=== PATIENT | male | born 1965 | race African-American/Black ===

== ENCOUNTER 2019-08-03 16:21 | Inpatient (IN) | payer OTHER ==
--- NOTE | 2019-08-03 16:47 | PDOC ---
Rapid Medical Evaluation Time Seen by Provider: 08/03/19 16:43 Medical Evaluation: 08/03/19 16:44 Pt c/o: foot wound, sent by wound care for admission to [facility] and dr kelley Pt on brief exam: rt foot wrapped in dressing Pt ordered for: admission orders Pt to proceed to the ED Discharge Disposition - Diagnosis Osteomyelitis of foot - Discharge Dispostion Condition at time of disposition: Fair - Referrals - Patient Instructions - Post Discharge Activity
[2019-08-03 17:44] LABS: BASO % 0.7 % (0-2.0); EOS % 1.1 % (0-4.5); HEMATOCRIT 43.7 % (35.4-49); HEMOGLOBIN 14.3 GM/dL (11.7-16.9); LYMPH % 13.8 % (8-40); MCH 25.7 pg (25.7-33.7); MCHC 32.7 g/dl (32.0-35.9); MEAN CELL VOLUME 78.7 fl (80-96); MEAN PLT VOLUME 9.3 fl (7.5-11.1); NEUT % 76.4 % (42.8-82.8); PLATELET COUNT 285 K/MM3 (134-434); RBC 5.55 M/mm3 (4.00-5.60); RDW 12.9 % (11.9-15.9); WHITE BLOOD COUNT 12.5 K/mm3 (4.0-10.0)
[2019-08-03 17:56] LABS: INR 1.28 (0.83-1.09); PROTHROMBIN TIME (PATIENT) 15.1 SEC (9.7-13.0)
--- NOTE | 2019-08-03 18:16 | HP ---
Admitting History and Physical - Primary Care Physician PCP: Lester Hyde - Admission Chief Complaint: foot wound History of Present Illness: HISTORY OF PRESENT ILLNESS: 54-year-old male past medical history of type 2 diabetes who presents emergency department from wound care for admission for treatment of osteomyelitis of his right foot. Patient states she was on outpatient Augmentin during wound care but now noticed increased swelling and redness to his right foot with a foul odor from the wound. He denies fevers or chills. - Past Medical History Endocrine: Yes: Diabetes Mellitus - Smoking History Smoking history: Never smoked - Alcohol/Substance Use Hx Alcohol Use: No Home Medications - Allergies Allergies/Adverse Reactions: Allergies Allergy/AdvReac Type Severity Reaction Status Date / Time No Known Allergies Allergy Verified 08/03/19 16:45 - Home Medications Home Medications: Ambulatory Orders Sitagliptin Phos/Metformin HCl [Janumet 50-1,000 mg Tablet] 1 tab PO BID Physical Examination Vital Signs: Vital Signs Temperature 98.3 F 08/03/19 16:46 Pulse Rate 87 08/03/19 16:46 Respiratory Rate 16 08/03/19 16:46 Blood Pressure 158/83 08/03/19 16:46 O2 Sat by Pulse Oximetry (%) 100 08/03/19 16:46 Constitutional: Yes: No Distress HENT: Yes: Atraumatic Neck: Yes: Supple Cardiovascular: Yes: Regular Rate and Rhythm Respiratory: Yes: CTA Bilaterally Gastrointestinal: Yes: Normal Bowel Sounds Extremities: Yes: Other (R foot infection) Edema: Yes Edema: RLE: 1+ Neurological: Yes: Alert, Oriented Labs: CBC, BMP 08/03/19 17:03 Problem List - Problems (1) Wound of foot Assessment/Plan: iv abx wound care id consult Code(s): S91.309A - UNSPECIFIED OPEN WOUND, UNSPECIFIED FOOT, INITIAL ENCOUNTER (2) Diabetes Code(s): E11.9 - TYPE 2 DIABETES MELLITUS WITHOUT COMPLICATIONS (3) Osteomyelitis of foot Code(s): M86.9 - OSTEOMYELITIS, UNSPECIFIED Assessment/Plan Laboratory Tests 08/03/19 08/03/19 17:03 17:03 WBC 12.5 H RBC 5.55 Hgb 14.3 Hct 43.7 MCV 78.7 L MCH 25.7 MCHC 32.7 RDW 12.9 Plt Count 285 D MPV 9.3 Absolute Neuts (auto) 9.6 H Neutrophils % 76.4 Lymphocytes % 13.8 D Monocytes % 8.0 Eosinophils % 1.1 Basophils % 0.7 Nucleated RBC % 0 PT with INR 15.10 H INR 1.28 H Active Medications Generic Name Dose Route Start Last Admin Trade Name Freq PRN Reason Stop Dose Admin Acetaminophen 650 mg 08/03/19 18:18 Tylenol - PO Q6H PRN FEVER Heparin Sodium (Porcine) 5,000 unit 08/03/19 22:00 08/04/19 09:48 Heparin - SQ 5,000 unit BID JAREN Administration Vancomycin HCl 1,250 mg/ 250 mls @ 166.667 mls/hr 08/04/19 13:00 08/04/19 16: 29 Dextrose IVPB 166.667 mls/hr Q12H JAREN Administration Protocol Levofloxacin 750 mg in 150 mls @ 100 mls/hr 08/04/19 13:00 08/04/19 14:11 Levaquin 750 Mg Premixed Ivpb - IVPB 100 mls/hr DAILY JAREN Administration Protocol Metformin HCl 1,000 mg 08/04/19 07:00 08/04/19 17:02 Glucophage - PO 1,000 mg BIDAC JAREN Administration Sitagliptin Phosphate 50 mg 08/04/19 07:00 08/04/19 17:02 Januvia - PO 50 mg BIDAC JAREN Administration
[2019-08-03] MEDS ORDERED: CEFTRIAXONE 2,000 MG in DEXTROSE 5%-WATER - 50 ML IVPB ONE (19:46)
--- NOTE | 2019-08-03 19:50 | PDOC ---
*Physical Exam - Vital Signs Last Vital Signs Temp Pulse Resp BP Pulse Ox 98.3 F 87 16 158/83 100 08/03/19 16:46 08/03/19 16:46 08/03/19 16:46 08/03/19 16:46 08/03/19 16:46 ED Treatment Course - LABORATORY CBC & Chemistry Diagram: 08/03/19 17:03 08/03/19 20:40 - ADDITIONAL ORDERS Additional order review: Laboratory Results 08/03/19 08/03/19 08/03/19 17:03 17:03 17:03 PT with INR 15.10 H INR 1.28 H Creatine Kinase 87 Troponin I < 0.02 Blood Type A POSITIVE Antibody Screen Negative 08/03/19 17:03 RBC 5.55 MCV 78.7 L MCHC 32.7 RDW 12.9 MPV 9.3 Neutrophils % 76.4 Lymphocytes % 13.8 D Monocytes % 8.0 Eosinophils % 1.1 Basophils % 0.7 Medical Decision Making - Medical Decision Making 08/03/19 19:50 Right patient seen by the advanced practice provider under my direct supervision. Ancillary testing reviewed as necessary. I agree with plan as outlined by the advanced practice provider. Discharge - Discharge Information Problems reviewed: Yes Clinical Impression/Diagnosis: Osteomyelitis of foot Condition: Fair - Follow up/Referral - Patient Discharge Instructions - Post Discharge Activity
--- NOTE | 2019-08-03 20:05 | PDOC ---
History of Present Illness - General Chief Complaint: Wound Stated Complaint: SENT BY PCP/WOUND Time Seen by Provider: 08/03/19 16:43 History Source: Patient Exam Limitations: No Limitations - History of Present Illness Initial Comments: 08/03/19 19:50 HISTORY OF PRESENT ILLNESS: 54-year-old male past medical history of type 2 diabetes who presents emergency department from wound care for admission for treatment of osteomyelitis of his right foot. Patient states she was on outpatient Augmentin during wound care but now noticed increased swelling and redness to his right foot with a foul odor from the wound. He denies fevers or chills. No recent travel or sick contacts. PAST MEDICAL HISTORY: DM2 SURGICAL HISTORY: Denies ALLERGIES: No known drug allergies REVIEW OF SYSTEMS General/Constitutional: Denies fever or chills. Denies weakness, weight change. HEENT: Denies change in vision. Denies ear pain or discharge. Denies sore throat. Cardiovascular: Denies chest pain or shortness of breath. Respiratory: Denies cough, wheezing, or hemoptysis. Gastrointestinal: Denies nausea, vomiting, diarrhea or constipation. Denies rectal bleeding. Genitourinary: Denies dysuria, frequency, or change in urination. Musculoskeletal: see HPI Skin and breasts: Denies rash or easy bruising. Neurologic: Denies headache, vertigo, loss of consciousness, or loss of sensation. Psychiatric: Denies depression or anxiety. Endocrine: Denies increased thirst. Denies abnormal weight change. Hematologic/Lymphatic: Denies anemia, easy bleeding, or history of blood clots. Allergic/Immunologic: Denies hives or skin allergy. Denies latex allergy. PHYSICAL EXAM General Appearance: Well-appearing, appropriately dressed. No apparent distress , no intoxication. Respiratory/Chest: Lungs CTAB. No shortness of breath, chest tenderness, respiratory distress, accessory muscle use. No crackles, rales, rhonchi, stridor , wheezing, dullness Cardiovascular: RRR. S1, S2. No JVD, murmur, bradycardia, tachycardia. Vascular Pulses: Dorsalis-Pedis (R): 2+, Dorsalis-Pedis (L): 2+ Lymphatic: No adenopathy, tenderness. Musculoskeletal/Extremities: Normal inspection. FROM of all extremities, normal capillary refill. Pelvis Stable. No CVA tenderness. No tenderness to extremities, pedal edema, swelling, erythema or deformity. Integumentary: Appropriate color, dry, warm. No cyanosis, erythema, jaundice or rash. Open wound present over the plantar surface over the right fifth metatarsal. Surrounding erythema noted extending to the dorsum of the right foot to the base of the ankle. Able to contact bone with probing of the wound. Culture collected. 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 Fully oriented, alert. Appropriate mood/affect. Motor strength 5/5. No appreciable EOM palsy, facial droop or sensory deficit. 08/03/19 20:05 Past History - Past Medical History Allergies/Adverse Reactions: Allergies Allergy/AdvReac Type Severity Reaction Status Date / Time No Known Allergies Allergy Verified 08/03/19 16:45 Home Medications: Ambulatory Orders Sitagliptin Phos/Metformin HCl [Janumet 50-1,000 mg Tablet] 1 PO BID 08/03/19 COPD: No Diabetes: Yes - Immunization History Immunization Up to Date: Yes - Psycho Social/Smoking Cessation Hx Smoking History: Never smoked Hx Alcohol Use: No Drug/Substance Use Hx: No *Physical Exam - Vital Signs Last Vital Signs Temp Pulse Resp BP Pulse Ox 98.3 F 87 16 158/83 100 08/03/19 16:46 08/03/19 16:46 08/03/19 16:46 08/03/19 16:46 08/03/19 16:46 ED Treatment Course - LABORATORY CBC & Chemistry Diagram: 08/03/19 17:03 - ADDITIONAL ORDERS Additional order review: Laboratory Results 08/03/19 08/03/19 08/03/19 17:03 17:03 17:03 WBC 12.5 H RBC 5.55 Hgb 14.3 Hct 43.7 MCV 78.7 L MCH 25.7 MCHC 32.7 RDW 12.9 Plt Count 285 D MPV 9.3 Absolute Neuts (auto) 9.6 H Neutrophils % 76.4 Lymphocytes % 13.8 D Monocytes % 8.0 Eosinophils % 1.1 Basophils % 0.7 Nucleated RBC % 0 PT with INR 15.10 H INR 1.28 H Creatine Kinase Troponin I Blood Type A POSITIVE Antibody Screen Negative 08/03/19 17:03 WBC RBC Hgb Hct MCV MCH MCHC RDW Plt Count MPV Absolute Neuts (auto) Neutrophils % Lymphocytes % Monocytes % Eosinophils % Basophils % Nucleated RBC % PT with INR INR Creatine Kinase 87 Troponin I < 0.02 Blood Type Antibody Screen 08/03/19 17:03 RBC 5.55 MCV 78.7 L MCHC 32.7 RDW 12.9 MPV 9.3 Neutrophils % 76.4 Lymphocytes % 13.8 D Monocytes % 8.0 Eosinophils % 1.1 Basophils % 0.7 Medical Decision Making - Medical Decision Making 08/03/19 20:07 A/P: 54-year-old male with osteomyelitis of his right foot over the plantar surface of the fifth metatarsal Probing of the wound reveals contact with bone. Surrounding erythema present encompassing the foot extending to the base of the tibia. Case has been discussed with Dr. Nuno who recommends ceftriaxone 2 g IV to be given now. Blood cultures Wound culture CMP Admit Consult placed for podiatry 08/03/19 20:08 08/03/19 20:24 Case has been discussed with Dr. Hyde who is aware of patient and accepts for inpatient admission. Discharge - Discharge Information Problems reviewed: Yes Clinical Impression/Diagnosis: Osteomyelitis of foot Condition: Fair - Admission Yes - Follow up/Referral Referrals: Kristen Chambers MD [Primary Care Provider] - - Patient Discharge Instructions - Post Discharge Activity
[2019-08-03] MEDS ORDERED: CEFTRIAXONE 2 GM/100 ML BAG IVPB ONE (20:50)
[2019-08-03 21:48] LABS: ALBUMIN 3.4 g/dl (3.4-5.0); BILIRUBIN,TOTAL 0.2 mg/dL (0.2-1); BLOOD UREA NITROGEN 16.2 mg/dL (7-18); CALCIUM 8.7 mg/dL (8.5-10.1); CREATININE 0.9 mg/dL (0.55-1.3); POTASSIUM 4.3 mmol/L (3.5-5.1); TOT PROT 7.1 g/dl (6.4-8.2)
[2019-08-03] MEDS ORDERED: PATIENT'S OWN MEDICATION (NON-FORMULARY) (Sitagliptin Phos/Metformin Hcl [Janumet 50-1,000 PO SCH (22:00)
[2019-08-04] MEDS ORDERED: HEPARIN NA (PORCINE) 5,000 UNITS/ML 1ML VIAL ONE (00:12)
[2019-08-04] MEDS: HEPARIN NA (PORCINE) 5,000 UNITS/ML 1ML VIAL SQ SCH ×3 (00:19→22:46)
[2019-08-04] MEDS ORDERED: metFORMIN HCL 500 MG TABLET (FP) ONE (05:48)
[2019-08-04] MEDS ORDERED: sitaGLIPtin PHOSPHATE 50 MG TABLET ONE (06:12)
[2019-08-04] MEDS: metFORMIN HCL 500 MG TABLET (FP) PO SCH ×2 (06:45→17:02)
[2019-08-04] MEDS: sitaGLIPtin PHOSPHATE 50 MG TABLET PO SCH ×2 (06:46→17:02)
--- NOTE | 2019-08-04 10:05 | EKG ---
Test Reason : Blood Pressure : / mmHG Vent. Rate : 077 BPM Atrial Rate : 077 BPM P-R Int : 154 ms QRS Dur : 094 ms QT Int : 362 ms P-R-T Axes : 061 073 025 degrees QTc Int : 409 ms NORMAL SINUS RHYTHM POSSIBLE LEFT ATRIAL ENLARGEMENT LEFT VENTRICULAR HYPERTROPHY ABNORMAL ECG NO PREVIOUS ECGS AVAILABLE Confirmed by AMNA MARTINEZ MD ([id number]) on 08/04/2019 10:04:50 AM Referred By: Confirmed By:AMNA MARTINEZ MD
--- NOTE | 2019-08-04 12:10 | CON.ID ---
Consult Consult Specialty:: infectious diseases Referred by:: dr ham Reason for Consultation:: osteo and cellulitis of the foot,wound infection - Alcohol/Substance Use Hx Alcohol Use: No - Smoking History Smoking history: Never smoked Home Medications - Allergies Allergies/Adverse Reactions: Allergies Allergy/AdvReac Type Severity Reaction Status Date / Time No Known Allergies Allergy Verified 08/03/19 16:45 - Home Medications Home Medications: Ambulatory Orders Sitagliptin Phos/Metformin HCl [Janumet 50-1,000 mg Tablet] 1 tab PO BID Physical Exam Vital Signs: Vital Signs Temperature 98.2 F 08/04/19 07:37 Pulse Rate 65 08/04/19 07:37 Respiratory Rate 18 08/04/19 07:37 Blood Pressure 140/77 08/04/19 07:37 O2 Sat by Pulse Oximetry (%) 97 08/04/19 07:37 Labs: CBC, BMP 08/03/19 17:03 08/03/19 20:40
[2019-08-04] MEDS: VANCOMYCIN 1,250 MG in DEXTROSE 5%-WATER - 250 ML IVPB SCH (16:29)
--- NOTE | 2019-08-04 18:48 | PN ---
Progress Note, Physician - Current Medication List Current Medications: Active Medications Acetaminophen (Tylenol -) 650 mg PO Q6H PRN PRN Reason: FEVER Heparin Sodium (Porcine) (Heparin -) 5,000 unit SQ BID JAREN Last Admin: 08/04/19 09:48 Dose: 5,000 unit Vancomycin HCl 1,250 mg/ (Dextrose) 250 mls @ 166.667 mls/hr IVPB Q12H JAREN; Protocol Last Admin: 08/04/19 16:29 Dose: 166.667 mls/hr Levofloxacin (Levaquin 750 Mg Premixed Ivpb -) 750 mg in 150 mls @ 100 mls/hr IVPB DAILY JAREN; Protocol Last Admin: 08/04/19 14:11 Dose: 100 mls/hr Metformin HCl (Glucophage -) 1,000 mg PO BIDAC JAREN Last Admin: 08/04/19 17:02 Dose: 1,000 mg Sitagliptin Phosphate (Januvia -) 50 mg PO BIDAC JAREN Last Admin: 08/04/19 17:02 Dose: 50 mg - Objective Vital Signs: Vital Signs Temperature 98.2 F 08/04/19 07:37 Pulse Rate 65 08/04/19 07:37 Respiratory Rate 18 08/04/19 07:37 Blood Pressure 140/77 08/04/19 07:37 O2 Sat by Pulse Oximetry (%) 97 08/04/19 07:37 Constitutional: Yes: No Distress HENT: Yes: Atraumatic Neck: Yes: Supple Cardiovascular: Yes: Regular Rate and Rhythm Respiratory: Yes: CTA Bilaterally Gastrointestinal: Yes: Normal Bowel Sounds Extremities: Yes: Other (R foot infection) Neurological: Yes: Alert, Oriented Labs: CBC, BMP 08/03/19 17:03 08/03/19 20:40 INR, PTT INR 1.28 (0.83-1.09) H 08/03/19 17:03 Problem List - Problems (1) Wound of foot Assessment/Plan: iv abx wound care id consult Code(s): S91.309A - UNSPECIFIED OPEN WOUND, UNSPECIFIED FOOT, INITIAL ENCOUNTER (2) Diabetes Assessment/Plan: on po meds bgms Code(s): E11.9 - TYPE 2 DIABETES MELLITUS WITHOUT COMPLICATIONS (3) Osteomyelitis of foot Code(s): M86.9 - OSTEOMYELITIS, UNSPECIFIED
[2019-08-05] MEDS: VANCOMYCIN 1,250 MG in DEXTROSE 5%-WATER - 250 ML IVPB SCH ×2 (02:09→14:14)
[2019-08-05] MEDS: sitaGLIPtin PHOSPHATE 50 MG TABLET PO SCH ×2 (06:32→16:30)
[2019-08-05] MEDS: metFORMIN HCL 500 MG TABLET (FP) PO SCH ×2 (06:32→16:30)
[2019-08-05] MEDS ORDERED: FLU VACCINE QUAD 60 MCG/0.5 ML (MDV 19-20) IM ONE (10:00)
[2019-08-05] MEDS ORDERED: PT OWN MED DRAWER 7, Y5N ONE (10:44)
[2019-08-05] MEDS: HEPARIN NA (PORCINE) 5,000 UNITS/ML 1ML VIAL SQ SCH ×2 (11:21→22:29)
--- NOTE | 2019-08-05 13:07 | CONSULT ---
Consult Consult Specialty:: Podiatry Reason for Consultation:: Asked to evaluate patient for wound plantar right foot that is drainaing. - History of Present Illness Chief Complaint: Diabetic wound sub 5 left History of Present Illness: Patient was being tx outpatient for this wound. Had a TCC EZ applied and destroyed cast and got it wet. Came in with infected foot. Pt has been seen in past by Dr. Strickland, Dr. Rivera. - History Source History Provided By: Patient, Medical Record - Past Medical History Endocrine: Yes: Diabetes Mellitus - Alcohol/Substance Use Hx Alcohol Use: No - Smoking History Smoking history: Never smoked Home Medications - Allergies Allergies/Adverse Reactions: Allergies Allergy/AdvReac Type Severity Reaction Status Date / Time No Known Allergies Allergy Verified 08/03/19 16:45 - Home Medications Home Medications: Ambulatory Orders Sitagliptin Phos/Metformin HCl [Janumet 50-1,000 mg Tablet] 1 tab PO BID Physical Exam Vital Signs: Vital Signs Temperature 98.4 F 08/05/19 10:00 Pulse Rate 72 08/05/19 10:00 Respiratory Rate 18 08/05/19 10:00 Blood Pressure 139/69 08/05/19 10:00 O2 Sat by Pulse Oximetry (%) 98 08/05/19 09:00 Extremities: Yes: Other (+grade 3 wound sub 5 with drainage, +cellulitis, + drainage, -mal odor, vsgi,) Labs: CBC, BMP 08/03/19 17:03 08/03/19 20:40 Imaging - Results X-ray: Report Reviewed, Image Reviewed Assessment/Plan om? cellulitis plantarflexed 5th metatarsal Discussed tx options with patient and Dr. Rivera. Recommend stabilization of infection. Once stable needs bone resection partial or total head resection. HBO would be beneficial and patient has had it already. Will follow. Discussed with Dr. Rivera. MRI recommended. Betadine dressing right foot. Post op shoe.
--- NOTE | 2019-08-05 13:58 | PN ---
Progress Note, Physician History of Present Illness: patient improving no complaints - Current Medication List Current Medications: Active Medications Acetaminophen (Tylenol -) 650 mg PO Q6H PRN PRN Reason: FEVER Heparin Sodium (Porcine) (Heparin -) 5,000 unit SQ BID JAREN Last Admin: 08/05/19 11:21 Dose: 5,000 unit Vancomycin HCl 1,250 mg/ (Dextrose) 250 mls @ 166.667 mls/hr IVPB Q12H JAREN; Protocol Last Admin: 08/05/19 02:09 Dose: 166.667 mls/hr Levofloxacin (Levaquin 750 Mg Premixed Ivpb -) 750 mg in 150 mls @ 100 mls/hr IVPB DAILY JAREN; Protocol Last Admin: 08/05/19 11:21 Dose: 100 mls/hr Metformin HCl (Glucophage -) 1,000 mg PO BIDAC JAREN Last Admin: 08/05/19 06:32 Dose: 1,000 mg Sitagliptin Phosphate (Januvia -) 50 mg PO BIDAC JAREN Last Admin: 08/05/19 06:32 Dose: 50 mg - Objective Vital Signs: Vital Signs Temperature 98.4 F 08/05/19 10:00 Pulse Rate 72 08/05/19 10:00 Respiratory Rate 18 08/05/19 10:00 Blood Pressure 139/69 08/05/19 10:00 O2 Sat by Pulse Oximetry (%) 98 08/05/19 09:00 Constitutional: Yes: No Distress, Calm, Obese Cardiovascular: Yes: S1, S2 Respiratory: Yes: Regular, CTA Bilaterally Gastrointestinal: Yes: Normal Bowel Sounds, Soft Musculoskeletal: Yes: WNL Extremities: Yes: Erythema (of the rt leg), Other Edema: RLE: 2+ Integumentary: Yes: Erythema Wound/Incision: Yes: Well Approximated Neurological: Yes: Alert, Oriented Psychiatric: Yes: Alert, Oriented Labs: CBC, BMP 08/03/19 17:03 08/03/19 20:40 INR, PTT INR 1.28 (0.83-1.09) H 08/03/19 17:03 Assessment/Plan Problem List - Problems (1) Wound of foot Code(s): S91.309A - UNSPECIFIED OPEN WOUND, UNSPECIFIED FOOT, INITIAL ENCOUNTER (2) Diabetes Code(s): E11.9 - TYPE 2 DIABETES MELLITUS WITHOUT COMPLICATIONS (3) Osteomyelitis of foot Code(s): M86.9 - OSTEOMYELITIS, UNSPECIFIED plan as per podiatry will need surgery abx wound care rest as per the team
--- NOTE | 2019-08-05 18:33 | PN ---
Progress Note, Physician - Current Medication List Current Medications: Active Medications Acetaminophen (Tylenol -) 650 mg PO Q6H PRN PRN Reason: FEVER Heparin Sodium (Porcine) (Heparin -) 5,000 unit SQ BID JAREN Last Admin: 08/05/19 11:21 Dose: 5,000 unit Vancomycin HCl 1,250 mg/ (Dextrose) 250 mls @ 166.667 mls/hr IVPB Q12H JAREN; Protocol Last Admin: 08/05/19 14:14 Dose: 166.667 mls/hr Levofloxacin (Levaquin 750 Mg Premixed Ivpb -) 750 mg in 150 mls @ 100 mls/hr IVPB DAILY JAREN; Protocol Last Admin: 08/05/19 11:21 Dose: 100 mls/hr Metformin HCl (Glucophage -) 1,000 mg PO BIDAC JAREN Last Admin: 08/05/19 16:30 Dose: 1,000 mg Sitagliptin Phosphate (Januvia -) 50 mg PO BIDAC JAREN Last Admin: 08/05/19 16:30 Dose: 50 mg - Objective Vital Signs: Vital Signs Temperature 98.1 F 08/05/19 14:38 Pulse Rate 77 08/05/19 14:38 Respiratory Rate 16 08/05/19 14:38 Blood Pressure 134/74 08/05/19 14:38 O2 Sat by Pulse Oximetry (%) 98 08/05/19 09:00 Constitutional: Yes: No Distress HENT: Yes: Atraumatic Neck: Yes: Supple Cardiovascular: Yes: Regular Rate and Rhythm Respiratory: Yes: CTA Bilaterally Gastrointestinal: Yes: Normal Bowel Sounds Extremities: Yes: WNL Edema: No Peripheral Pulses WNL: Yes Neurological: Yes: Alert, Oriented Labs: CBC, BMP 08/03/19 17:03 08/03/19 20:40 INR, PTT INR 1.28 (0.83-1.09) H 08/03/19 17:03 Problem List - Problems (1) Wound of foot Assessment/Plan: iv abx wound care id consult Code(s): S91.309A - UNSPECIFIED OPEN WOUND, UNSPECIFIED FOOT, INITIAL ENCOUNTER (2) Diabetes Assessment/Plan: on po meds bgms Code(s): E11.9 - TYPE 2 DIABETES MELLITUS WITHOUT COMPLICATIONS (3) Osteomyelitis of foot Code(s): M86.9 - OSTEOMYELITIS, UNSPECIFIED
[2019-08-06] MEDS ORDERED: PT OWN MED DRAWER 7, Y5N ONE ×2 (00:47→14:32)
[2019-08-06] MEDS: VANCOMYCIN 1,250 MG in DEXTROSE 5%-WATER - 250 ML IVPB SCH ×2 (01:02→15:00)
[2019-08-06] MEDS: sitaGLIPtin PHOSPHATE 50 MG TABLET PO SCH ×2 (06:19→17:41)
[2019-08-06] MEDS: metFORMIN HCL 500 MG TABLET (FP) PO SCH ×2 (06:19→17:40)
--- NOTE | 2019-08-06 10:00 | CONSULT ---
- Consultation REQUESTING PROVIDER: CONSULT REQUEST: We have been asked to surgically evaluate this patient for Right foot ulcer/osteomeylitis PCP:Lester Hyde HISTORY OF PRESENT ILLNESS: HISTORY OF PRESENT ILLNESS: 54-year-old male past medical history of type 2 diabetes who presents emergency department from wound care for admission for treatment of osteomyelitis of his right foot. Patient states he was on outpatient Augmentin during wound care but now noticed increased swelling and redness to his right foot with a foul odor from the wound. He denies fevers, chills, N/V, CP or SOB. No recent travel or sick contacts. PAST MEDICAL HISTORY: DM2 SURGICAL HISTORY: Denies ALLERGIES: No known drug allergies Allergies Allergy/AdvReac Type Severity Reaction Status Date / Time No Known Allergies Allergy Verified 08/03/19 16:45 Home Medications Medication Instructions Recorded Sitagliptin Phos/Metformin HCl 1 tab PO BID 08/03/19 [Janumet 50-1,000 mg Tablet] REVIEW OF SYSTEMS General/Constitutional: Denies fever or chills. Denies weakness, weight change. HEENT: Denies change in vision. Denies ear pain or discharge. Denies sore throat. Cardiovascular: Denies chest pain or shortness of breath. Respiratory: Denies cough, wheezing, or hemoptysis. Gastrointestinal: Denies nausea, vomiting, diarrhea or constipation. Denies rectal bleeding. Genitourinary: Denies dysuria, frequency, or change in urination. Musculoskeletal: see HPI Skin and breasts: Denies rash or easy bruising. Neurologic: Denies headache, vertigo, loss of consciousness, or loss of sensation. Psychiatric: Denies depression or anxiety. Endocrine: Denies increased thirst. Denies abnormal weight change. Hematologic/Lymphatic: Denies anemia, easy bleeding, or history of blood clots. Allergic/Immunologic: Denies hives or skin allergy. Denies latex allergy. PHYSICAL EXAM General Appearance: Well-appearing, appropriately dressed. No apparent distress , Respiratory/Chest: Unlabored resp on RA, no auditory wheezes Vascular Pulses: Dorsalis-Pedis (R): 2+, +1 PT, Dorsalis-Pedis (L): 2+, +1TP Musculoskeletal/Extremities: moving all extremities without limitation. Integumentary: Appropriate color, dry, warm. No cyanosis, erythema, jaundice or rashes, cellulitis resolving, small punctate wound @ 0.5x0.5cm over plantar surface at base of the 5th metatarsal, mild odor noted with question of exposed bone. minimal diffuse edema throughout foot, minimal erythema noted extending to the dorsum of the right foot to the base of the ankle. 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 Fully oriented, alert. Appropriate mood/affect. Motor strength 5/5. No appreciable EOM palsy, facial droop or sensory deficit. 08/03/19 20:05 Problem List - Problems (1) Diabetic foot ulcer Assessment/Plan: 54yo with chronic DM foot ulcer r/o osteomeylitis and palpable pulses with no evidence for vascular intervention. -Continue Osteomeylitis work up-MRI today -Continue IV ABX per ID -Refer to podiatry for all care going forward -offload pressure sensitive area Evaluation and plan discussed with Dr Nickerson Code(s): E11.621 - TYPE 2 DIABETES MELLITUS WITH FOOT ULCER; L97.509 - NON- PRESSURE CHRONIC ULCER OTH PRT UNSP FOOT W UNSP SEVERITY
[2019-08-06] MEDS: HEPARIN NA (PORCINE) 5,000 UNITS/ML 1ML VIAL SQ SCH ×2 (11:06→21:00)
--- NOTE | 2019-08-06 12:15 | PN ---
Progress Note, Physician - Current Medication List Current Medications: Active Medications Acetaminophen (Tylenol -) 650 mg PO Q6H PRN PRN Reason: FEVER Heparin Sodium (Porcine) (Heparin -) 5,000 unit SQ BID JAREN Last Admin: 08/06/19 11:06 Dose: Not Given Vancomycin HCl 1,250 mg/ (Dextrose) 250 mls @ 166.667 mls/hr IVPB Q12H JAREN; Protocol Last Admin: 08/06/19 01:02 Dose: 166.667 mls/hr Levofloxacin (Levaquin 750 Mg Premixed Ivpb -) 750 mg in 150 mls @ 100 mls/hr IVPB DAILY JAREN; Protocol Last Admin: 08/06/19 11:25 Dose: 100 mls/hr Metformin HCl (Glucophage -) 1,000 mg PO BIDAC JAREN Last Admin: 08/06/19 06:19 Dose: Not Given Sitagliptin Phosphate (Januvia -) 50 mg PO BIDAC JAREN Last Admin: 08/06/19 06:19 Dose: Not Given - Objective Vital Signs: Vital Signs Temperature 98 F 08/06/19 09:40 Pulse Rate 65 08/06/19 09:40 Respiratory Rate 18 08/06/19 09:40 Blood Pressure 125/76 08/06/19 09:40 O2 Sat by Pulse Oximetry (%) 99 08/05/19 21:00 Constitutional: Yes: No Distress HENT: Yes: Atraumatic Neck: Yes: Supple Cardiovascular: Yes: Regular Rate and Rhythm Respiratory: Yes: CTA Bilaterally Gastrointestinal: Yes: Normal Bowel Sounds Extremities: Yes: Other (R foot cellulitis) Neurological: Yes: Alert, Oriented Labs: CBC, BMP 08/03/19 17:03 08/03/19 20:40 INR, PTT INR 1.28 (0.83-1.09) H 08/03/19 17:03 Problem List - Problems (1) Wound of foot Assessment/Plan: iv abx wound care id consult for mri Code(s): S91.309A - UNSPECIFIED OPEN WOUND, UNSPECIFIED FOOT, INITIAL ENCOUNTER (2) Diabetes Assessment/Plan: on po meds bgms Code(s): E11.9 - TYPE 2 DIABETES MELLITUS WITHOUT COMPLICATIONS (3) Osteomyelitis of foot Assessment/Plan: s/p mri pending report Code(s): M86.9 - OSTEOMYELITIS, UNSPECIFIED
--- NOTE | 2019-08-06 15:53 | PN ---
Progress Note, Physician History of Present Illness: plan for or today leg improving - Current Medication List Current Medications: Active Medications Acetaminophen (Tylenol -) 650 mg PO Q6H PRN PRN Reason: FEVER Heparin Sodium (Porcine) (Heparin -) 5,000 unit SQ BID JAREN Last Admin: 08/06/19 11:06 Dose: Not Given Vancomycin HCl 1,250 mg/ (Dextrose) 250 mls @ 166.667 mls/hr IVPB Q12H JAREN; Protocol Last Admin: 08/06/19 15:00 Dose: 166.667 mls/hr Levofloxacin (Levaquin 750 Mg Premixed Ivpb -) 750 mg in 150 mls @ 100 mls/hr IVPB DAILY JAREN; Protocol Last Admin: 08/06/19 11:25 Dose: 100 mls/hr Metformin HCl (Glucophage -) 1,000 mg PO BIDAC JAREN Last Admin: 08/06/19 06:19 Dose: Not Given Sitagliptin Phosphate (Januvia -) 50 mg PO BIDAC JAREN Last Admin: 08/06/19 06:19 Dose: Not Given - Objective Vital Signs: Vital Signs Temperature 98.3 F 08/06/19 14:00 Pulse Rate 65 08/06/19 14:00 Respiratory Rate 20 08/06/19 14:00 Blood Pressure 115/77 08/06/19 14:00 O2 Sat by Pulse Oximetry (%) 99 08/05/19 21:00 Constitutional: Yes: No Distress, Calm Cardiovascular: Yes: S1, S2 Respiratory: Yes: Regular, CTA Bilaterally Gastrointestinal: Yes: Normal Bowel Sounds, Soft Musculoskeletal: Yes: WNL Extremities: Yes: WNL Wound/Incision: Yes: Unapproximated Neurological: Yes: Alert Psychiatric: Yes: Alert, Oriented Labs: CBC, BMP 08/03/19 17:03 08/03/19 20:40 INR, PTT INR 1.28 (0.83-1.09) H 08/03/19 17:03 Assessment/Plan Problem List - Problems (1) Wound of foot Code(s): S91.309A - UNSPECIFIED OPEN WOUND, UNSPECIFIED FOOT, INITIAL ENCOUNTER (2) Diabetes Code(s): E11.9 - TYPE 2 DIABETES MELLITUS WITHOUT COMPLICATIONS (3) Osteomyelitis of foot Code(s): M86.9 - OSTEOMYELITIS, UNSPECIFIED plan patient for or tissue biopsy abx wound care
--- NOTE | 2019-08-06 17:35 | PN ---
Progress Note, Physician History of Present Illness: Patient was being tx outpatient for this wound. Had a TCC EZ applied and destroyed cast and got it wet. Came in with infected foot. Pt has been seen in past by Dr. Strickland, Dr. Rievra. - Current Medication List Current Medications: Active Medications Acetaminophen (Tylenol -) 650 mg PO Q6H PRN PRN Reason: FEVER Heparin Sodium (Porcine) (Heparin -) 5,000 unit SQ BID JAREN Last Admin: 08/06/19 11:06 Dose: Not Given Levofloxacin (Levaquin 750 Mg Premixed Ivpb -) 750 mg in 150 mls @ 100 mls/hr IVPB DAILY JAREN; Protocol Last Admin: 08/06/19 11:25 Dose: 100 mls/hr Vancomycin HCl 1,500 mg/ (Dextrose) 500 mls @ 250 mls/hr IVPB Q12H JAREN; Protocol Metformin HCl (Glucophage -) 1,000 mg PO BIDAC JAREN Last Admin: 08/06/19 06:19 Dose: Not Given Sitagliptin Phosphate (Januvia -) 50 mg PO BIDAC JAREN Last Admin: 08/06/19 06:19 Dose: Not Given - Objective Vital Signs: Vital Signs Temperature 98.3 F 08/06/19 14:00 Pulse Rate 65 08/06/19 14:00 Respiratory Rate 20 08/06/19 14:00 Blood Pressure 115/77 08/06/19 14:00 O2 Sat by Pulse Oximetry (%) 99 08/06/19 09:00 Extremities: Yes: Other (+improved drainage left foot wond, +improving cellulitis left) Labs: CBC, BMP 08/03/19 17:03 08/03/19 20:40 INR, PTT INR 1.28 (0.83-1.09) H 08/03/19 17:03 Assessment/Plan om on mri cellulitis plantarflexed 5th metatarsal Discussed tx options with patient and Dr. Rivera. Patient has om and would best be served by resection of bone. HBO would be beneficial and patient has had it already in past for closure. IVABX as per ID. Will follow. Discussed with Dr. Rivera. Greg dresing to left foot.
[2019-08-06] MEDS: COLLAGENASE CLOSTRIDIUM HIST. 30 GRAMS TUBE TP SCH (20:48)
[2019-08-06] MEDS: ACETAMINOPHEN 325 MG TABLET (FP) PO PRN (23:35)
[2019-08-07] MEDS: VANCOMYCIN HCL 1,500 MG in DEXTROSE 5%-WATER - 500 ML IVPB SCH ×2 (01:54→14:32)
[2019-08-07] MEDS: ACETAMINOPHEN 325 MG TABLET (FP) PO PRN (05:43)
[2019-08-07] MEDS: sitaGLIPtin PHOSPHATE 50 MG TABLET PO SCH ×2 (06:27→17:21)
[2019-08-07] MEDS: metFORMIN HCL 500 MG TABLET (FP) PO SCH ×2 (06:27→17:21)
[2019-08-07] MEDS ORDERED: PT OWN MED DRAWER 7, Y5N ONE ×3 (10:12→14:16)
[2019-08-07] MEDS: HEPARIN NA (PORCINE) 5,000 UNITS/ML 1ML VIAL SQ SCH ×2 (10:16→22:15)
[2019-08-07] MEDS: COLLAGENASE CLOSTRIDIUM HIST. 30 GRAMS TUBE TP SCH (10:17)
--- NOTE | 2019-08-07 12:44 | PN ---
Progress Note, Physician History of Present Illness: Patient was being tx outpatient for this wound. Had a TCC EZ applied and destroyed cast and got it wet. Came in with infected foot. Pt has been seen in past by Dr. Strickland, Dr. Rivera. Pt observed sitting up in chair with post op shoe on right foot. - Current Medication List Current Medications: Active Medications Acetaminophen (Tylenol -) 650 mg PO Q6H PRN PRN Reason: FEVER Last Admin: 08/07/19 05:43 Dose: 650 mg Collagenase (Santyl -) 1 applic TP DAILY JAREN; Protocol Last Admin: 08/07/19 10:17 Dose: 1 applic Heparin Sodium (Porcine) (Heparin -) 5,000 unit SQ BID JAREN Last Admin: 08/07/19 10:16 Dose: 5,000 unit Levofloxacin (Levaquin 750 Mg Premixed Ivpb -) 750 mg in 150 mls @ 100 mls/hr IVPB DAILY JAREN; Protocol Last Admin: 08/07/19 10:16 Dose: 100 mls/hr Vancomycin HCl 1,500 mg/ (Dextrose) 500 mls @ 250 mls/hr IVPB Q12H JAREN; Protocol Last Admin: 08/07/19 01:54 Dose: 250 mls/hr Metformin HCl (Glucophage -) 1,000 mg PO BIDAC JAREN Last Admin: 08/07/19 06:27 Dose: 1,000 mg Sitagliptin Phosphate (Januvia -) 50 mg PO BIDAC JAREN Last Admin: 08/07/19 06:27 Dose: 50 mg - Objective Vital Signs: Vital Signs Temperature 97.8 F 08/07/19 06:00 Pulse Rate 71 08/07/19 06:00 Respiratory Rate 18 08/07/19 06:00 Blood Pressure 138/74 08/07/19 06:00 O2 Sat by Pulse Oximetry (%) 98 08/06/19 21:00 Extremities: Yes: Other (+improving cellulitis, -drainage , -mal odor right foot , +grade 3 wound right 5th metatarsal head plantar aspect, +om) Labs: CBC, BMP 08/03/19 17:03 08/03/19 20:40 INR, PTT INR 1.28 (0.83-1.09) H 08/03/19 17:03 Assessment/Plan om on mri-report needs clarification cellulitis plantarflexed 5th metatarsal Discussed tx options with patient. Pt fully understands all risks benefits and alternatives. Options included no intervention abx and hbo with offloading with possible spread of om. Debridement with I&D and hbo no bone removal and possible spread of om. Debridement of bone and soft tissue, including resection of 5th metatarsal head, with vancomycin bead packing, resecttion of om and hbo tx. Continue IVABX as per ID. Will decide tomorrow and consent or no consent accordingly. Greg dresing to left foot. Lab work ordered. If surgery opted for will do Friday or Friday.
--- NOTE | 2019-08-07 13:27 | PN ---
Progress Note, Physician - Current Medication List Current Medications: Active Medications Acetaminophen (Tylenol -) 650 mg PO Q6H PRN PRN Reason: FEVER Last Admin: 08/07/19 05:43 Dose: 650 mg Collagenase (Santyl -) 1 applic TP DAILY JAREN; Protocol Last Admin: 08/07/19 10:17 Dose: 1 applic Heparin Sodium (Porcine) (Heparin -) 5,000 unit SQ BID JAREN Last Admin: 08/07/19 10:16 Dose: 5,000 unit Levofloxacin (Levaquin 750 Mg Premixed Ivpb -) 750 mg in 150 mls @ 100 mls/hr IVPB DAILY JAREN; Protocol Last Admin: 08/07/19 10:16 Dose: 100 mls/hr Vancomycin HCl 1,500 mg/ (Dextrose) 500 mls @ 250 mls/hr IVPB Q12H JAREN; Protocol Last Admin: 08/07/19 01:54 Dose: 250 mls/hr Metformin HCl (Glucophage -) 1,000 mg PO BIDAC [facility] Last Admin: 08/07/19 06:27 Dose: 1,000 mg Sitagliptin Phosphate (Januvia -) 50 mg PO BIDAC JAREN Last Admin: 08/07/19 06:27 Dose: 50 mg - Objective Vital Signs: Vital Signs Temperature 97.8 F 08/07/19 06:00 Pulse Rate 71 08/07/19 06:00 Respiratory Rate 18 08/07/19 06:00 Blood Pressure 138/74 08/07/19 06:00 O2 Sat by Pulse Oximetry (%) 98 08/06/19 21:00 Constitutional: Yes: No Distress HENT: Yes: Atraumatic Neck: Yes: Supple Cardiovascular: Yes: Regular Rate and Rhythm Respiratory: Yes: CTA Bilaterally Gastrointestinal: Yes: Normal Bowel Sounds Extremities: Yes: Other (R foot cellulitis) Neurological: Yes: Alert, Oriented Labs: CBC, BMP 08/03/19 17:03 08/03/19 20:40 INR, PTT INR 1.28 (0.83-1.09) H 08/03/19 17:03 Problem List - Problems (1) Wound of foot Assessment/Plan: iv abx wound care id consult Code(s): S91.309A - UNSPECIFIED OPEN WOUND, UNSPECIFIED FOOT, INITIAL ENCOUNTER (2) Diabetes Assessment/Plan: on po meds bgms Code(s): E11.9 - TYPE 2 DIABETES MELLITUS WITHOUT COMPLICATIONS (3) Osteomyelitis of foot Assessment/Plan: s/p mri osteo Code(s): M86.9 - OSTEOMYELITIS, UNSPECIFIED
[2019-08-07 13:45] LABS: BASO % 1.1 % (0-2.0); EOS % 2.1 % (0-4.5); HEMATOCRIT 42.1 % (35.4-49); LYMPH % 20.9 % (8-40); MCH 25.8 pg (25.7-33.7); MCHC 33.2 g/dl (32.0-35.9); MEAN CELL VOLUME 77.7 fl (80-96); MEAN PLT VOLUME 8.5 fl (7.5-11.1); MONO % 7.3 % (3.8-10.2); NEUT % 68.6 % (42.8-82.8); PLATELET COUNT 317 K/MM3 (134-434); RBC 5.42 M/mm3 (4.00-5.60); RDW 13.1 % (11.9-15.9); WHITE BLOOD COUNT 8.5 K/mm3 (4.0-10.0)
--- NOTE | 2019-08-07 15:18 | PN ---
Progress Note, Physician History of Present Illness: Pt is alert, without distress. MRI results and Podiatry noted reviewed. OR cancelled yesterday. - Current Medication List Current Medications: Active Medications Acetaminophen (Tylenol -) 650 mg PO Q6H PRN PRN Reason: FEVER Last Admin: 08/07/19 05:43 Dose: 650 mg Collagenase (Santyl -) 1 applic TP DAILY JAREN; Protocol Last Admin: 08/07/19 10:17 Dose: 1 applic Heparin Sodium (Porcine) (Heparin -) 5,000 unit SQ BID JAREN Last Admin: 08/07/19 10:16 Dose: 5,000 unit Levofloxacin (Levaquin 750 Mg Premixed Ivpb -) 750 mg in 150 mls @ 100 mls/hr IVPB DAILY JAREN; Protocol Last Admin: 08/07/19 10:16 Dose: 100 mls/hr Vancomycin HCl 1,500 mg/ (Dextrose) 500 mls @ 250 mls/hr IVPB Q12H JAREN; Protocol Last Admin: 08/07/19 14:32 Dose: 250 mls/hr Metformin HCl (Glucophage -) 1,000 mg PO BIDAC JAREN Last Admin: 08/07/19 06:27 Dose: 1,000 mg Sitagliptin Phosphate (Januvia -) 50 mg PO BIDAC JAREN Last Admin: 08/07/19 06:27 Dose: 50 mg - Objective Vital Signs: Vital Signs Temperature 97.9 F 08/07/19 13:50 Pulse Rate 72 08/07/19 13:50 Respiratory Rate 16 08/07/19 13:50 Blood Pressure 115/56 L 08/07/19 13:50 O2 Sat by Pulse Oximetry (%) 98 08/07/19 09:00 Constitutional: Yes: No Distress, Calm Cardiovascular: Yes: Regular Rate and Rhythm Respiratory: Yes: CTA Bilaterally Gastrointestinal: Yes: Normal Bowel Sounds, Soft Wound/Incision: Yes: Dressing Dry and Intact (Rt foot dressing intact) Neurological: Yes: Alert, Oriented Labs: CBC, BMP 08/07/19 13:30 08/03/19 20:40 INR, PTT INR 1.28 (0.83-1.09) H 08/03/19 17:03 Microbiology 08/03/19 20:40 Wound Gram Stain - Final 08/03/19 20:40 Wound Wound Culture - Preliminary Citrobacter Koseri Enterococcus Faecalis Gram Negative Donte 08/03/19 20:40 Blood - Peripheral Venous Blood Culture - Preliminary NO GROWTH OBTAINED AFTER 72 HOURS, INCUBATION TO CONTINUE FOR 2 DAYS. 08/03/19 20:40 Blood - Peripheral Venous Blood Culture - Preliminary NO GROWTH OBTAINED AFTER 72 HOURS, INCUBATION TO CONTINUE FOR 2 DAYS. - ....Imaging MRI: Report Reviewed Problem List - Problems (1) Diabetic foot ulcer Code(s): E11.621 - TYPE 2 DIABETES MELLITUS WITH FOOT ULCER; L97.509 - NON- PRESSURE CHRONIC ULCER OTH PRT UNSP FOOT W UNSP SEVERITY (2) Osteomyelitis of foot Code(s): M86.9 - OSTEOMYELITIS, UNSPECIFIED Assessment/Plan RLE cellulitis Infected Rt foot ulcer/distal 5th MT OM -- continue IV antibiotics, follow up final culture results -- monitor renal function, Vancomycin levels -- Podiatry following, awaiting further intervention/bone culture -- continue wound care
[2019-08-08] MEDS ORDERED: PT OWN MED DRAWER 7, Y5N ONE (01:11)
[2019-08-08] MEDS: VANCOMYCIN HCL 1,500 MG in DEXTROSE 5%-WATER - 500 ML IVPB SCH ×2 (01:24→13:50)
[2019-08-08] MEDS: metFORMIN HCL 500 MG TABLET (FP) PO SCH ×2 (06:25→17:12)
[2019-08-08] MEDS: sitaGLIPtin PHOSPHATE 50 MG TABLET PO SCH ×2 (06:25→17:12)
[2019-08-08] MEDS: COLLAGENASE CLOSTRIDIUM HIST. 30 GRAMS TUBE TP SCH (09:28)
[2019-08-08] MEDS: HEPARIN NA (PORCINE) 5,000 UNITS/ML 1ML VIAL SQ SCH ×2 (09:28→21:53)
--- NOTE | 2019-08-08 17:04 | PN ---
Progress Note, Physician History of Present Illness: No new events. Pt remains afebrile, tolerating antibiotics. - Current Medication List Current Medications: Active Medications Acetaminophen (Tylenol -) 650 mg PO Q6H PRN PRN Reason: FEVER Last Admin: 08/07/19 05:43 Dose: 650 mg Collagenase (Santyl -) 1 applic TP DAILY JAREN; Protocol Last Admin: 08/08/19 09:28 Dose: 1 applic Heparin Sodium (Porcine) (Heparin -) 5,000 unit SQ BID JAREN Last Admin: 08/08/19 09:28 Dose: 5,000 unit Levofloxacin (Levaquin 750 Mg Premixed Ivpb -) 750 mg in 150 mls @ 100 mls/hr IVPB DAILY JAREN; Protocol Last Admin: 08/08/19 09:28 Dose: 100 mls/hr Vancomycin HCl 1,500 mg/ (Dextrose) 500 mls @ 250 mls/hr IVPB Q12H JAREN; Protocol Last Admin: 08/08/19 13:50 Dose: 250 mls/hr Metformin HCl (Glucophage -) 1,000 mg PO BIDAC JAREN Last Admin: 08/08/19 06:25 Dose: 1,000 mg Sitagliptin Phosphate (Januvia -) 50 mg PO BIDAC JAREN Last Admin: 08/08/19 06:25 Dose: 50 mg - Objective Vital Signs: Vital Signs Temperature 97.9 F 08/08/19 06:00 Pulse Rate 66 08/08/19 10:00 Respiratory Rate 18 08/08/19 10:00 Blood Pressure 150/74 08/08/19 10:00 O2 Sat by Pulse Oximetry (%) 99 08/08/19 08:38 Constitutional: Yes: No Distress, Calm Cardiovascular: Yes: Regular Rate and Rhythm Gastrointestinal: Yes: Normal Bowel Sounds, Soft Wound/Incision: Yes: Dressing Dry and Intact, Other (Rt foot mild edema/erythema ) Neurological: Yes: Alert, Oriented Labs: CBC, BMP 08/07/19 13:30 08/03/19 20:40 INR, PTT INR 1.28 (0.83-1.09) H 08/03/19 17:03 Microbiology 08/03/19 20:40 Wound Gram Stain - Final 08/03/19 20:40 Wound Wound Culture - Final Citrobacter Koseri Enterococcus Faecalis Myroides Species 08/03/19 20:40 Blood - Peripheral Venous Blood Culture - Preliminary NO GROWTH OBTAINED AFTER 96 HOURS, INCUBATION TO CONTINUE FOR 1 DAYS. 08/03/19 20:40 Blood - Peripheral Venous Blood Culture - Preliminary NO GROWTH OBTAINED AFTER 96 HOURS, INCUBATION TO CONTINUE FOR 1 DAYS. Problem List - Problems (1) Diabetic foot ulcer Code(s): E11.621 - TYPE 2 DIABETES MELLITUS WITH FOOT ULCER; L97.509 - NON- PRESSURE CHRONIC ULCER OTH PRT UNSP FOOT W UNSP SEVERITY (2) Osteomyelitis of foot Code(s): M86.9 - OSTEOMYELITIS, UNSPECIFIED Assessment/Plan RLE cellulitis Infected Rt foot ulcer/distal 5th MT OM DM -- Wound culture isolates noted, continue current antibiotics -- Vancomycin trough level ordered for tomorrow, monitor renal function -- Podiatry following, awaiting further intervention -- continue wound care
--- NOTE | 2019-08-08 18:19 | PN ---
Progress Note, Physician - Current Medication List Current Medications: Active Medications Acetaminophen (Tylenol -) 650 mg PO Q6H PRN PRN Reason: FEVER Last Admin: 08/07/19 05:43 Dose: 650 mg Collagenase (Santyl -) 1 applic TP DAILY [facility]; Protocol Last Admin: 08/08/19 09:28 Dose: 1 applic Heparin Sodium (Porcine) (Heparin -) 5,000 unit SQ BID JAREN Last Admin: 08/08/19 09:28 Dose: 5,000 unit Levofloxacin (Levaquin 750 Mg Premixed Ivpb -) 750 mg in 150 mls @ 100 mls/hr IVPB DAILY JAREN; Protocol Last Admin: 08/08/19 09:28 Dose: 100 mls/hr Vancomycin HCl 1,500 mg/ (Dextrose) 500 mls @ 250 mls/hr IVPB Q12H JAREN; Protocol Last Admin: 08/08/19 13:50 Dose: 250 mls/hr Metformin HCl (Glucophage -) 1,000 mg PO BIDAC [facility] Last Admin: 08/08/19 17:12 Dose: 1,000 mg Sitagliptin Phosphate (Januvia -) 50 mg PO BIDAC JAREN Last Admin: 08/08/19 17:12 Dose: 50 mg - Objective Vital Signs: Vital Signs Temperature 97.8 F 08/08/19 18:00 Pulse Rate 86 08/08/19 18:00 Respiratory Rate 18 08/08/19 18:00 Blood Pressure 114/66 08/08/19 18:00 O2 Sat by Pulse Oximetry (%) 99 08/08/19 08:38 Constitutional: Yes: No Distress HENT: Yes: Atraumatic Neck: Yes: Supple Cardiovascular: Yes: Regular Rate and Rhythm Respiratory: Yes: CTA Bilaterally Gastrointestinal: Yes: Normal Bowel Sounds Extremities: Yes: WNL Edema: No Neurological: Yes: Alert, Oriented Labs: CBC, BMP 08/07/19 13:30 08/03/19 20:40 INR, PTT INR 1.28 (0.83-1.09) H 08/03/19 17:03 Problem List - Problems (1) Wound of foot Assessment/Plan: iv abx wound care id consult Code(s): S91.309A - UNSPECIFIED OPEN WOUND, UNSPECIFIED FOOT, INITIAL ENCOUNTER (2) Diabetes Assessment/Plan: on po meds bgms Code(s): E11.9 - TYPE 2 DIABETES MELLITUS WITHOUT COMPLICATIONS (3) Osteomyelitis of foot Code(s): M86.9 - OSTEOMYELITIS, UNSPECIFIED
[2019-08-09] MEDS ORDERED: PT OWN MED DRAWER 7, Y5N ONE ×2 (01:28→14:58)
[2019-08-09] MEDS: VANCOMYCIN HCL 1,500 MG in DEXTROSE 5%-WATER - 500 ML IVPB SCH ×2 (01:55→15:02)
[2019-08-09] MEDS: sitaGLIPtin PHOSPHATE 50 MG TABLET PO SCH (07:02)
[2019-08-09] MEDS: metFORMIN HCL 500 MG TABLET (FP) PO SCH ×2 (07:02→17:18)
[2019-08-09 07:36] LABS: BASO % 0.8 % (0-2.0); EOS % 1.7 % (0-4.5); HEMATOCRIT 43.3 % (35.4-49); HEMOGLOBIN 14.4 GM/dL (11.7-16.9); LYMPH % 21.1 % (8-40); MCH 25.8 pg (25.7-33.7); MCHC 33.2 g/dl (32.0-35.9); MEAN CELL VOLUME 77.8 fl (80-96); MEAN PLT VOLUME 9.3 fl (7.5-11.1); MONO % 7.3 % (3.8-10.2); NEUT % 69.1 % (42.8-82.8); PLATELET COUNT 338 K/MM3 (134-434); RBC 5.56 M/mm3 (4.00-5.60); RDW 13.1 % (11.9-15.9); WHITE BLOOD COUNT 9.8 K/mm3 (4.0-10.0)
[2019-08-09 07:40] LABS: BLOOD UREA NITROGEN 18.4 mg/dL (7-18); CALCIUM 9.5 mg/dL (8.5-10.1); CREATININE 0.8 mg/dL (0.55-1.3); POTASSIUM 4.5 mmol/L (3.5-5.1)
[2019-08-09 08:11] LABS: INR 1.1 (0.83-1.09)
--- NOTE | 2019-08-09 09:03 | PN ---
Progress Note, Physician History of Present Illness: Patient was being tx outpatient for this wound. Had a TCC EZ applied and destroyed cast and got it wet. Came in with infected foot. Pt has been seen in past by Dr. Strickland, Dr. Rivera. - Current Medication List Current Medications: Active Medications Acetaminophen (Tylenol -) 650 mg PO Q6H PRN PRN Reason: FEVER Last Admin: 08/07/19 05:43 Dose: 650 mg Collagenase (Santyl -) 1 applic TP DAILY JAREN; Protocol Last Admin: 08/08/19 09:28 Dose: 1 applic Heparin Sodium (Porcine) (Heparin -) 5,000 unit SQ BID JAREN Last Admin: 08/08/19 21:53 Dose: 5,000 unit Levofloxacin (Levaquin 750 Mg Premixed Ivpb -) 750 mg in 150 mls @ 100 mls/hr IVPB DAILY JAREN; Protocol Last Admin: 08/08/19 09:28 Dose: 100 mls/hr Vancomycin HCl 1,500 mg/ (Dextrose) 500 mls @ 250 mls/hr IVPB Q12H JAREN; Protocol Last Admin: 08/09/19 01:55 Dose: 250 mls/hr Metformin HCl (Glucophage -) 1,000 mg PO BIDAC JAREN Last Admin: 08/09/19 07:02 Dose: Not Given Sitagliptin Phosphate (Januvia -) 50 mg PO BIDAC JAREN Last Admin: 08/09/19 07:02 Dose: Not Given - Objective Vital Signs: Vital Signs Temperature 98.2 F 08/09/19 06:00 Pulse Rate 78 08/09/19 06:00 Respiratory Rate 18 08/09/19 06:00 Blood Pressure 122/73 08/09/19 06:00 O2 Sat by Pulse Oximetry (%) 96 08/08/19 21:00 Extremities: Yes: Other (-drainage, vsgi, ns, +resolving cellulitis, +om, - tender,) Labs: CBC, BMP 08/09/19 06:25 08/09/19 06:25 INR, PTT INR 1.10 (0.83-1.09) H 08/09/19 06:25 Assessment/Plan om on mri-report needs clarification cellulitis plantarflexed 5th metatarsal Pt seen in bed today. Has opted for removal of bone that is affected by osteomyelitis. Pt has tried in the past with offloading and conservative care with orthoses and proper shoe gear. Has been unable to prevent re-occurrence of wound/callous under 5th metatarsal head. 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 Wants to avoid re-occurrence. Pt fully understands all risks benefits and alternatives. Pt consented for I&D, resection of 5th metatrsal head, application of vancomycin beads if necessary. Pt is agreeable with HBO and IVABX as necessary. Spoke with dr. Alcantar about MRI.
[2019-08-09] MEDS: HEPARIN NA (PORCINE) 5,000 UNITS/ML 1ML VIAL SQ SCH ×2 (11:16→22:49)
[2019-08-09] MEDS: COLLAGENASE CLOSTRIDIUM HIST. 30 GRAMS TUBE TP SCH (11:17)
[2019-08-09] MEDS ORDERED: PROMETHAZINE HCL 25 MG/1 ML VIAL IVPB PRN ×2 (12:25→14:30)
[2019-08-09] MEDS ORDERED: ONDANSETRON 4 MG/2 ML VIAL IVPUSH PRN ×2 (12:25→14:30)
[2019-08-09] MEDS ORDERED: LACTATED RINGERS SOLUTION 1,000 ML IV SCH (12:30)
[2019-08-09] MEDS ORDERED: VANCOMYCIN 1,000 MG VIAL (RESTRICTED TO ID ONLY) ONE (12:32)
[2019-08-09] MEDS ORDERED: LIDOCAINE HCL 1%, 10 MG/ML (20ML VIAL) ONE (12:41)
[2019-08-09] MEDS ORDERED: LIDOCAINE HCL 2% (20ML MULTI-DOSE VIAL) ONE (12:42)
[2019-08-09] MEDS ORDERED: MIDAZOLAM HCL 2 MG/2 ML SINGLE DOSE VIAL ONE ×2 (13:09→13:18)
[2019-08-09] MEDS ORDERED: GLYCOPYRROLATE 0.2 MG/1 ML VIAL ONE (13:09)
[2019-08-09] MEDS ORDERED: BUPIVACAINE HCL/PF 0.5% (5 MG/ML) 30 ML VIAL IJ ONE (13:27)
[2019-08-09] MEDS ORDERED: LIDOCAINE HCL 1%, 10 MG/ML (20ML VIAL) INF ONE (13:27)
[2019-08-09] MEDS ORDERED: VANCOMYCIN 1,000 MG VIAL (RESTRICTED TO ID ONLY) IVPB ONE (13:45)
[2019-08-09] MEDS ORDERED: BACITRACIN 50,000 UNITS VIAL NR ONE (13:54)
[2019-08-09] MEDS ORDERED: PROPOFOL 20 ML ONE (14:13)
--- NOTE | 2019-08-09 14:14 | OP ---
Operative Note - Note: Operative Date: 08/09/19 Pre-Operative Diagnosis: osteomyelitis, abscess Operation: I&D, 5th met head resection, biopsy proximal bone margin, vancomycin bead packing, iodoform packing plantar wound Findings: necrotic bone and soft tissue Post-Operative Diagnosis: Same as Pre-op Surgeon: Brice Soto Right Of Way Buyer: Hamzah Vo (Gurwinder Rivera) Anesthesia: Local, MAC Specimens Removed: bone soft tissue Estimated Blood Loss (mls): 5 Instrument used (Debridements only): scalpel and saggital saw Drains & Tubes with Location: 07/24"plain packing Operative Report Dictated: No
[2019-08-09] MEDS: LACTATED RINGERS SOLUTION 1,000 ML IV SCH ×2 (14:30→17:23)
[2019-08-09] MEDS ORDERED: ACETAMINOPHEN 325 MG TABLET (FP) PO PRN (14:30)
--- NOTE | 2019-08-09 15:02 | PN ---
Progress Note, Physician - Current Medication List Current Medications: Active Medications Acetaminophen (Tylenol -) 650 mg PO Q6H PRN PRN Reason: FEVER Heparin Sodium (Porcine) (Heparin -) 5,000 unit SQ BID JAREN Lactated Ringer's (Lactated Ringers Solution) 1,000 mls @ 125 mls/hr IV ASDIR JAREN Levofloxacin (Levaquin 750 Mg Premixed Ivpb -) 750 mg in 150 mls @ 100 mls/hr IVPB DAILY [facility]AREN; Protocol Vancomycin HCl 1,500 mg/ (Dextrose) 500 mls @ 250 mls/hr IVPB 0200,1400 JAREN; Protocol Metformin HCl (Glucophage -) 1,000 mg PO BIDAC JAREN Ondansetron HCl (Zofran Injection) 4 mg IVPUSH Q6H PRN PRN Reason: NAUSEA AND/OR VOMITING Stop: 08/10/19 12:24 - Objective Vital Signs: Vital Signs Temperature 98 F 08/09/19 10:00 Pulse Rate 71 08/09/19 10:00 Respiratory Rate 18 08/09/19 10:00 Blood Pressure 127/87 08/09/19 10:00 O2 Sat by Pulse Oximetry (%) 98 08/09/19 09:00 Labs: CBC, BMP 08/09/19 06:25 08/09/19 06:25 INR, PTT INR 1.10 (0.83-1.09) H 08/09/19 06:25
[2019-08-09 15:15] LABS: BASO % 0.6 % (0-2.0); EOS % 1.9 % (0-4.5); HEMATOCRIT 39.1 % (35.4-49); HEMOGLOBIN 12.8 GM/dL (11.7-16.9); MCH 25.6 pg (25.7-33.7); MCHC 32.8 g/dl (32.0-35.9); MEAN PLT VOLUME 8.7 fl (7.5-11.1); MONO % 7.4 % (3.8-10.2); NEUT % 70.1 % (42.8-82.8); PLATELET COUNT 291 K/MM3 (134-434); RBC 5.01 M/mm3 (4.00-5.60); RDW 13.1 % (11.9-15.9); WHITE BLOOD COUNT 8.2 K/mm3 (4.0-10.0)
--- NOTE | 2019-08-09 16:49 | PN ---
Progress Note, Physician - Current Medication List Current Medications: Active Medications Acetaminophen (Tylenol -) 650 mg PO Q6H PRN PRN Reason: FEVER Heparin Sodium (Porcine) (Heparin -) 5,000 unit SQ BID JAREN Lactated Ringer's (Lactated Ringers Solution) 1,000 mls @ 125 mls/hr IV ASDIR JAREN Levofloxacin (Levaquin 750 Mg Premixed Ivpb -) 750 mg in 150 mls @ 100 mls/hr IVPB DAILY [facility]; Protocol Vancomycin HCl 1,500 mg/ (Dextrose) 500 mls @ 250 mls/hr IVPB 0200,1400 [facility]; Protocol Metformin HCl (Glucophage -) 1,000 mg PO BIDAC JAREN Ondansetron HCl (Zofran Injection) 4 mg IVPUSH Q6H PRN PRN Reason: NAUSEA AND/OR VOMITING Stop: 08/10/19 12:24 - Objective Vital Signs: Vital Signs Temperature 97.7 F 08/09/19 15:35 Pulse Rate 60 08/09/19 15:35 Respiratory Rate 18 08/09/19 15:35 Blood Pressure 110/62 08/09/19 15:35 O2 Sat by Pulse Oximetry (%) 97 08/09/19 15:35 Constitutional: Yes: No Distress HENT: Yes: Atraumatic Neck: Yes: Supple Cardiovascular: Yes: Regular Rate and Rhythm Respiratory: Yes: CTA Bilaterally Gastrointestinal: Yes: Normal Bowel Sounds Extremities: Yes: Other (s/p I and d R foot) Neurological: Yes: Alert, Oriented Labs: CBC, BMP 08/09/19 14:55 08/09/19 06:25 INR, PTT INR 1.10 (0.83-1.09) H 08/09/19 06:25 Problem List - Problems (1) Wound of foot Assessment/Plan: iv abx wound care id consult Code(s): S91.309A - UNSPECIFIED OPEN WOUND, UNSPECIFIED FOOT, INITIAL ENCOUNTER (2) Diabetes Assessment/Plan: on po meds bgms Code(s): E11.9 - TYPE 2 DIABETES MELLITUS WITHOUT COMPLICATIONS (3) Osteomyelitis of foot Assessment/Plan: s/p mri osteo..r Code(s): M86.9 - OSTEOMYELITIS, UNSPECIFIED
[2019-08-10] MEDS ORDERED: PT OWN MED DRAWER 7, Y5N ONE ×2 (01:48→12:59)
[2019-08-10] MEDS: VANCOMYCIN HCL 1,500 MG in DEXTROSE 5%-WATER - 500 ML IVPB SCH ×2 (02:32→13:16)
[2019-08-10] MEDS: LACTATED RINGERS SOLUTION 1,000 ML IV SCH ×2 (02:44→17:00)
[2019-08-10] MEDS: metFORMIN HCL 500 MG TABLET (FP) PO SCH ×2 (06:48→17:08)
--- NOTE | 2019-08-10 07:56 | PN ---
Progress Note (short form) - Note Progress Note: 54M s/p I&D right toe for osteomyelitis. No new c/o. Vital Signs Temp 98.2 F 08/09/19 22:00 Pulse 68 08/09/19 22:00 Resp 18 08/09/19 22:00 BP 151/81 08/09/19 22:00 Pulse Ox 97 08/09/19 21:00 Intake & Output 08/09/19 08/09/19 08/10/19 11:59 23:59 11:59 Intake Total 500 2265 Balance 500 2265 Intake: IV 1075 Lactated Ringers Solution 375 1,000 ml @ 125 mls/hr IV ASDIR JAREN Rx#: [id number] IVPB 500 150 Oral 1040 Other: Voiding Method Toilet Urinal # Unmeasured Voids Void 1 Bowel Movement Yes # Bowel Movements 1 CBC, BMP 08/09/19 14:55 08/09/19 06:25 - No anesthesia complications
[2019-08-10] MEDS: HEPARIN NA (PORCINE) 5,000 UNITS/ML 1ML VIAL SQ SCH ×2 (09:44→21:13)
--- NOTE | 2019-08-10 13:04 | PN ---
Progress Note, Physician - Current Medication List Current Medications: Active Medications Acetaminophen (Tylenol -) 650 mg PO Q6H PRN PRN Reason: FEVER Heparin Sodium (Porcine) (Heparin -) 5,000 unit SQ BID [facility] Last Admin: 08/10/19 09:44 Dose: 5,000 unit Lactated Ringer's (Lactated Ringers Solution) 1,000 mls @ 125 mls/hr IV ASDIR JAREN Last Admin: 08/10/19 02:44 Dose: 125 mls/hr Levofloxacin (Levaquin 750 Mg Premixed Ivpb -) 750 mg in 150 mls @ 100 mls/hr IVPB DAILY [facility]; Protocol Last Admin: 08/10/19 09:40 Dose: 100 mls/hr Vancomycin HCl 1,500 mg/ (Dextrose) 500 mls @ 250 mls/hr IVPB 0200,1400 [facility]; Protocol Last Admin: 08/10/19 02:32 Dose: 250 mls/hr Metformin HCl (Glucophage -) 1,000 mg PO BIDAC [facility] Last Admin: 08/10/19 06:48 Dose: 1,000 mg - Objective Vital Signs: Vital Signs Temperature 97.7 F 08/10/19 10:00 Pulse Rate 63 08/10/19 10:00 Respiratory Rate 18 08/10/19 10:00 Blood Pressure 102/50 L 08/10/19 10:00 O2 Sat by Pulse Oximetry (%) 97 08/10/19 09:00 Labs: CBC, BMP 08/09/19 14:55 08/09/19 06:25 INR, PTT INR 1.10 (0.83-1.09) H 08/09/19 06:25
--- NOTE | 2019-08-10 17:27 | PN ---
Progress Note, Physician - Current Medication List Current Medications: Active Medications Acetaminophen (Tylenol -) 650 mg PO Q6H PRN PRN Reason: FEVER Heparin Sodium (Porcine) (Heparin -) 5,000 unit SQ BID [facility] Last Admin: 08/10/19 09:44 Dose: 5,000 unit Lactated Ringer's (Lactated Ringers Solution) 1,000 mls @ 125 mls/hr IV ASDIR [facility] Last Admin: 08/10/19 17:00 Dose: 125 mls/hr Levofloxacin (Levaquin 750 Mg Premixed Ivpb -) 750 mg in 150 mls @ 100 mls/hr IVPB DAILY [facility]; Protocol Last Admin: 08/10/19 09:40 Dose: 100 mls/hr Vancomycin HCl 1,500 mg/ (Dextrose) 500 mls @ 250 mls/hr IVPB 0200,1400 [facility]; Protocol Last Admin: 08/10/19 13:16 Dose: 250 mls/hr Metformin HCl (Glucophage -) 1,000 mg PO BIDAC [facility] Last Admin: 08/10/19 17:08 Dose: 1,000 mg - Objective Vital Signs: Vital Signs Temperature 98 F 08/10/19 14:47 Pulse Rate 64 08/10/19 14:47 Respiratory Rate 18 08/10/19 14:47 Blood Pressure 146/75 08/10/19 14:47 O2 Sat by Pulse Oximetry (%) 97 08/10/19 09:00 Constitutional: Yes: No Distress HENT: Yes: Atraumatic Neck: Yes: Supple Cardiovascular: Yes: Regular Rate and Rhythm Respiratory: Yes: CTA Bilaterally Gastrointestinal: Yes: Normal Bowel Sounds Extremities: Yes: Other (R foot in dressing) Neurological: Yes: Alert, Oriented Labs: CBC, BMP 08/09/19 14:55 08/09/19 06:25 INR, PTT INR 1.10 (0.83-1.09) H 08/09/19 06:25 Problem List - Problems (1) Wound of foot Assessment/Plan: iv abx wound care id consult s/p surgery/debridement Code(s): S91.309A - UNSPECIFIED OPEN WOUND, UNSPECIFIED FOOT, INITIAL ENCOUNTER (2) Diabetes Assessment/Plan: on po meds bgms Code(s): E11.9 - TYPE 2 DIABETES MELLITUS WITHOUT COMPLICATIONS (3) Osteomyelitis of foot Assessment/Plan: s/p mri osteo..r s/p debridement Code(s): M86.9 - OSTEOMYELITIS, UNSPECIFIED
--- NOTE | 2019-08-10 19:15 | PN ---
Progress Note (short form) - Note Progress Note: pod#1. no pain. vss +dressing clean dry and intact, wbc=8.2 normal post op dressing change tomorrow or . ivabx as per id. xray reviewed. vancomycin beads in place. hbo consult. will follow.
[2019-08-10 19:32] VITALS: BMI 34.6
[2019-08-11] MEDS ORDERED: PT OWN MED DRAWER 7, Y5N ONE (01:57)
[2019-08-11] MEDS: VANCOMYCIN HCL 1,500 MG in DEXTROSE 5%-WATER - 500 ML IVPB SCH ×2 (02:15→13:29)
[2019-08-11] MEDS: metFORMIN HCL 500 MG TABLET (FP) PO SCH ×2 (06:27→16:24)
[2019-08-11] MEDS: sitaGLIPtin PHOSPHATE 50 MG TABLET PO SCH ×2 (06:27→16:24)
[2019-08-11] MEDS: HEPARIN NA (PORCINE) 5,000 UNITS/ML 1ML VIAL SQ SCH ×2 (10:18→21:24)
--- NOTE | 2019-08-11 11:31 | PN ---
Progress Note, Physician - Current Medication List Current Medications: Active Medications Acetaminophen (Tylenol -) 650 mg PO Q6H PRN PRN Reason: FEVER Heparin Sodium (Porcine) (Heparin -) 5,000 unit SQ BID JAR[facility] Last Admin: 08/11/19 10:18 Dose: 5,000 unit Levofloxacin (Levaquin 750 Mg Premixed Ivpb -) 750 mg in 150 mls @ 100 mls/hr IVPB DAILY [facility]; Protocol Last Admin: 08/11/19 10:18 Dose: 100 mls/hr Vancomycin HCl 1,500 mg/ (Dextrose) 500 mls @ 250 mls/hr IVPB 0200,1400 JAREN; Protocol Last Admin: 08/11/19 02:15 Dose: 250 mls/hr Metformin HCl (Glucophage -) 1,000 mg PO BIDAC [facility] Last Admin: 08/11/19 06:27 Dose: 1,000 mg Sitagliptin Phosphate (Januvia -) 50 mg PO BIDAC [facility] Last Admin: 08/11/19 06:27 Dose: 50 mg - Objective Vital Signs: Vital Signs Temperature 98.0 F 08/11/19 05:33 Pulse Rate 72 08/11/19 05:33 Respiratory Rate 08/11/19 05:33 Blood Pressure 136/66 08/11/19 05:33 O2 Sat by Pulse Oximetry (%) 97 08/10/19 21:00 Labs: CBC, BMP 08/09/19 14:55 08/09/19 06:25 INR, PTT INR 1.10 (0.83-1.09) H 08/09/19 06:25
--- NOTE | 2019-08-11 12:04 | PN ---
Progress Note (short form) - Note Progress Note: pod#2. no pain. vss +dressing clean dry and intact, packing in place, sutures in place dorsum of foot, -cellulitis normal post op dressing change done. packing pulled. Betadine dressing re-applied. ivabx as per id. hbo consult. will follow. orthowedge shoe. Pt shown shoe on [employer]. May be dc from podiatry standpoint. Follow up in wound care.
--- NOTE | 2019-08-11 14:55 | PATH ---
Surgical Pathology Report Patient Name: EBONY TYLER [facility]. Rec. #: [id number] /Age/Gender: 1965 (Age: 54) / M Account: [id number] Location: [facility] PEDS/ADOL Taken: 08/09/2019 Received: 08/10/2019 Reported: 08/11/2019 Physicians: Brice Soto DPM Specimen(s) Received A: FIFTH METATARSAL RIGHT FOOT B: PROXIMAL BONE FIFTH METATARSAL RIGHT FOOT Clinical History Osteomyelitis of right foot Final Diagnosis A. 5TH METATARSAL, RIGHT FOOT, EXCISION: PORTION OF BONE WITH ACUTE AND CHRONIC OSTEOMYELITIS. B. PROXIMAL BONE, FIFTH METATARSAL, RIGHT FOOT, EXCISION: PORTION OF BONE WITH ACUTE OSTEOMYELITIS. Electronically Signed Emerson Terrell M.D. Gross Description A. Received in formalin labeled "fifth right metatarsal," is a 1.9 x 1.3 x 0.9 cm enrique-yellow, irregular portion of bone. The specimen is serially sectioned and entirely submitted in one cassette, following decalcification. B. Received in formalin labeled "proximal bone fifth metatarsal," is a 1.8 x 1.2 x 0.3 cm enrique-yellow shaved portion of bone. The specimen is submitted in toto in one cassette, following decalcification. /08/10/2019 [facility]08/10/2019
--- NOTE | 2019-08-11 16:42 | PN ---
Progress Note, Physician - Current Medication List Current Medications: Active Medications Acetaminophen (Tylenol -) 650 mg PO Q6H PRN PRN Reason: FEVER Heparin Sodium (Porcine) (Heparin -) 5,000 unit SQ BID [facility] Last Admin: 08/11/19 10:18 Dose: 5,000 unit Levofloxacin (Levaquin 750 Mg Premixed Ivpb -) 750 mg in 150 mls @ 100 mls/hr IVPB DAILY [facility]; Protocol Last Admin: 08/11/19 10:18 Dose: 100 mls/hr Vancomycin HCl 1,500 mg/ (Dextrose) 500 mls @ 250 mls/hr IVPB 0200,1400 [facility]; Protocol Last Admin: 08/11/19 13:29 Dose: 250 mls/hr Metformin HCl (Glucophage -) 1,000 mg PO BIDAC [facility] Last Admin: 08/11/19 16:24 Dose: 1,000 mg Sitagliptin Phosphate (Januvia -) 50 mg PO BIDAC [facility] Last Admin: 08/11/19 16:24 Dose: 50 mg - Objective Vital Signs: Vital Signs Temperature 98.3 F 08/11/19 15:00 Pulse Rate 67 08/11/19 15:00 Respiratory Rate 18 08/11/19 15:00 Blood Pressure 124/63 08/11/19 15:00 O2 Sat by Pulse Oximetry (%) 96 08/11/19 09:00 Constitutional: Yes: No Distress HENT: Yes: Atraumatic Neck: Yes: Supple Cardiovascular: Yes: Regular Rate and Rhythm Respiratory: Yes: CTA Bilaterally Gastrointestinal: Yes: Normal Bowel Sounds Extremities: Yes: Other ( r foot in dressing) Neurological: Yes: Alert, Oriented Labs: CBC, BMP 08/09/19 14:55 08/09/19 06:25 INR, PTT INR 1.10 (0.83-1.09) H 08/09/19 06:25 Problem List - Problems (1) Wound of foot Assessment/Plan: iv abx wound care id consult s/p surgery/debridement Code(s): S91.309A - UNSPECIFIED OPEN WOUND, UNSPECIFIED FOOT, INITIAL ENCOUNTER (2) Diabetes Assessment/Plan: on po meds bgms Code(s): E11.9 - TYPE 2 DIABETES MELLITUS WITHOUT COMPLICATIONS (3) Osteomyelitis of foot Code(s): M86.9 - OSTEOMYELITIS, UNSPECIFIED
[2019-08-12] MEDS: VANCOMYCIN HCL 1,500 MG in DEXTROSE 5%-WATER - 500 ML IVPB SCH (02:38)
[2019-08-12] MEDS: metFORMIN HCL 500 MG TABLET (FP) PO SCH ×2 (06:09→17:28)
[2019-08-12] MEDS: sitaGLIPtin PHOSPHATE 50 MG TABLET PO SCH ×2 (06:09→17:28)
[2019-08-12] MEDS: HEPARIN NA (PORCINE) 5,000 UNITS/ML 1ML VIAL SQ SCH (09:20)
--- NOTE | 2019-08-12 11:28 | PN ---
Progress Note, Physician History of Present Illness: stable no new issues - Current Medication List Current Medications: Active Medications Acetaminophen (Tylenol -) 650 mg PO Q6H PRN PRN Reason: FEVER Heparin Sodium (Porcine) (Heparin -) 5,000 unit SQ BID [facility] Last Admin: 08/12/19 09:20 Dose: 5,000 unit Levofloxacin (Levaquin 750 Mg Premixed Ivpb -) 750 mg in 150 mls @ 100 mls/hr IVPB DAILY [facility]; Protocol Last Admin: 08/12/19 09:20 Dose: 100 mls/hr Vancomycin HCl 1,500 mg/ (Dextrose) 500 mls @ 250 mls/hr IVPB 0200,1400 [facility]; Protocol Last Admin: 08/12/19 02:38 Dose: 250 mls/hr Metformin HCl (Glucophage -) 1,000 mg PO BIDAC [facility] Last Admin: 08/12/19 06:09 Dose: 1,000 mg Sitagliptin Phosphate (Januvia -) 50 mg PO BIDAC [facility] Last Admin: 08/12/19 06:09 Dose: 50 mg - Objective Vital Signs: Vital Signs Temperature 97.7 F 08/12/19 09:28 Pulse Rate 61 08/12/19 09:28 Respiratory Rate 20 08/12/19 09:28 Blood Pressure 110/67 08/12/19 09:28 O2 Sat by Pulse Oximetry (%) 96 08/11/19 21:00 Constitutional: Yes: No Distress, Calm Cardiovascular: Yes: S1, S2 Respiratory: Yes: Regular, CTA Bilaterally Gastrointestinal: Yes: Normal Bowel Sounds, Soft Musculoskeletal: Yes: WNL Extremities: Yes: Other Wound/Incision: Yes: Dressing Dry and Intact Neurological: Yes: Alert, Oriented Psychiatric: Yes: Other Labs: CBC, BMP 08/09/19 14:55 08/09/19 06:25 INR, PTT INR 1.10 (0.83-1.09) H 08/09/19 06:25 Assessment/Plan Problem List - Problems (1) Wound of foot Code(s): S91.309A - UNSPECIFIED OPEN WOUND, UNSPECIFIED FOOT, INITIAL ENCOUNTER (2) Diabetes Code(s): E11.9 - TYPE 2 DIABETES MELLITUS WITHOUT COMPLICATIONS (3) Osteomyelitis of foot Code(s): M86.9 - OSTEOMYELITIS, UNSPECIFIED plan continue current mgmt will d/w podiatry the depth and if the bone was clean rest as per the team
--- NOTE | 2019-08-12 12:05 | DS ---
Physical Examination Vital Signs: Vital Signs Temperature 97.7 F 08/12/19 09:28 Pulse Rate 61 08/12/19 09:28 Respiratory Rate 20 08/12/19 09:28 Blood Pressure 110/67 08/12/19 09:28 O2 Sat by Pulse Oximetry (%) 96 08/11/19 21:00 Constitutional: Yes: No Distress HENT: Yes: Atraumatic Neck: Yes: Supple Cardiovascular: Yes: Regular Rate and Rhythm Respiratory: Yes: CTA Bilaterally Gastrointestinal: Yes: Normal Bowel Sounds Extremities: Yes: Other (foot osteo) Neurological: Yes: Alert, Oriented Labs: CBC, BMP 08/09/19 14:55 08/09/19 06:25 Discharge Summary Problems reviewed: Yes Reason For Visit: OSTEOMYELITIS OF FOOT Current Active Problems Diabetes (Acute) Diabetic foot ulcer (Acute) Osteomyelitis of foot (Acute) Condition: Fair - Instructions Diet, Activity, Other Instructions: FOLLOW UP IN WOUND CARE ANTIBIOTICS STOPPED PER ID Referrals: Kristen Chambers MD [Primary Care Provider] - Disposition: HOME - Home Medications Comprehensive Discharge Medication List: Ambulatory Orders Sitagliptin Phos/Metformin HCl [Janumet 50-1,000 mg Tablet] 1 tab PO BID
[2019-08-12 14:52] VITALS: BP 109/59; PULSE 79; TEMP 97.9
--- NOTE | 2019-08-12 18:47 | PN ---
Progress Note (short form) - Note Progress Note: pod#3. no pain. vss +dressing clean dry and intact, normal post op DC today to home. Pt to start HBO Friday. Pt advised to get orthowedge shoe. Advised to leave dressing in place at home until comes to wound care on Friday. If gets dressing dirty advised to come to wound care and have it changed. shoe. Pt shown shoe on [employer] the shoe. Follow up in wound care. Call if any problems or questions.
--- NOTE | 2019-08-30 14:46 | OP ---
DATE OF OPERATION: 08/09/2019 PREOPERATIVE DIAGNOSIS: Osteomyelitis with abscess, right foot 5th metatarsophalangeal joint with chronic ulceration. POSTOPERATIVE DIAGNOSIS: Osteomyelitis with abscess, right foot 5th metatarsophalangeal joint with chronic ulceration. PROCEDURE: Incision and drainage, 5th metatarsal head resection, biopsy of proximal bone margin, and vancomycin bead packing with iodoform packing plantar wound. SURGEON: Brice Soto DPM [employer]LOOR WORKER [employer] SERVICE: Hamzah Vo MD and Gurwinder Rivera DPM DESCRIPTION OF PROCEDURE: After noting all preoperative vital signs were within normal limits and after the surgical consent was signed and witnessed, the patient was brought to the OR, placed on a table in supine position. An IV line had been started prior to the patient coming to the OR. Once the patient was in the OR, the patient was sedated, and a local infiltrate was given proximally to anesthetize the foot in a Pantoja block fashion proximal to the base of the 5th metatarsophalangeal joint. Once this was done, the foot was then prepped and draped in the usual sterile fashion. Attention was then directed to the dorsal aspect of the 5th metatarsophalangeal joint, which was above the wound on the plantar aspect. This incision was deepened using sharp and blunt dissection to the level of the joint capsule. All unavoidable vessels were ligated in the usual fashion. All other neurovascular structures were retracted out of the surgical site. At this time , the head of the 5th metatarsal was identified. It was noted to be soft with changes. Utilizing a sagittal saw going from dorsal to plantar, the distal 1/3 of the 5th metatarsal was resected and sent down to Pathology. Before it was sent to Pathology, a piece of bone was taken and put into a wound culture tube from the plantar aspect of the 5th metatarsal head that was noted to be soft. At this time, the wound was explored, and another sliver of bone was taken from the proximal shaft that was remaining, and this was sent down to Pathology as a clean margin. The wound was then flushed with copious amounts of sterile saline that had antibiotic irrigation added to it. At this time, utilizing Osteoset impregnated with vancomycin, beads were created to be placed into the wound. These beads were placed into the wound from dorsal to plantar. Approximately 6-10 beads were utilized. At this time, packing was put into place on the dorsal aspect distal to the retention sutures using iodoform gauze. Once this was done, the dorsal aspect of the 5th metatarsal head where the skin incision was created was re-approximated using 4-0 nylonretention sutures in a simple, interrupted suture fashion. Xeroform gauze was then applied. Betadine-soaked Adaptic and a dry, sterile gauze and clean dressing were then applied. The patient tolerated the anesthesia and the procedure well. Patient returned to recovery room vital signs stable and vascular status intact. COLLEEN Garduno/[id number] MTDD
== END 2019-08-12 19:30 | disposition home or self-care (01) | DRG 629 ==
LOC: JER 16:21 → JERBED 20:09 → J4S 08-04 22:39
PROVIDERS: ADMIT Internal Medicine; ATTEND Internal Medicine
PROC: 0QBN0ZZ Excision of Right Metatarsal, Open Approach (ICD-10-PCS; 2019-08-09)
PROC: 0QBN0ZX Excision of Right Metatarsal, Open Approach, Diagnostic (ICD-10-PCS; 2019-08-09)
PROC: 0J9Q0ZX Drainage of Right Foot Subcutaneous Tissue and Fascia, Open Approach, Diagnostic (ICD-10-PCS; principal; 2019-08-09 12:00)
DX: E11.69 Type 2 diabetes mellitus with other specified complication (principal); M86.171 Other acute osteomyelitis, right ankle and foot; L03.115 Cellulitis of right lower limb; L97.518 Non-pressure chronic ulcer of other part of right foot with other specified severity; E11.621 Type 2 diabetes mellitus with foot ulcer; E66.9 Obesity, unspecified; Z68.34 Body mass index [BMI] 34.0-34.9, adult
CPT/HCPCS: 36415; 71045-TC-FY; 73630-TC-RT-FY; 73718-TC-RT; 80048; 80053; 82550; 82962; 84484; 85025; 85610; 85651; 86140; 86850; 86900; 86901; 87040; 87070; 87075; 87186; 87205; 88305-TC; 88311-TC; 93005; 93010; 94760; 97116-GP; 97161-GP; 99284-25; G0277; G0463-25; G0480; J1644

== ENCOUNTER 2023-03-27 15:18 | Inpatient (IN) | payer OTHER ==
[2023-03-27 15:29] VITALS: BMI 33.5
[2023-03-27] MEDS ORDERED: VANCOMYCIN 1,000 MG in DEXTROSE 5%-WATER - 250 ML IVPB ONE (16:34)
[2023-03-27] MEDS ORDERED: PIPERACILLIN/TAZOB 4.5 GM 4.5 GM in DEXTROSE 5%-WATER 100 ML IVPB ONE (16:35)
[2023-03-27] MEDS ORDERED: PIPERACILLIN/TAZOB 4.5 GM 4.5 GM/100 ML BAG IVPB ONE (16:49)
[2023-03-27] MEDS ORDERED: VANCOMYCIN 1 GRAM (PRE-DOCKED) 1,000 MG/250 ML BAG IVPB ONE (17:15)
[2023-03-27 17:37] LABS: BASO % 0.5 % (0-2.0); EOS % 1.2 % (0-4.5); HEMATOCRIT 42.8 % (35.4-49); MCHC 32.7 g/dl (32.0-35.9); MEAN CELL VOLUME 79.4 fl (80-96); MEAN PLT VOLUME 7.6 fl (7.5-11.1); MONO % 9.2 % (3.8-10.2); NEUT % 70.1 % (42.8-82.8); PLATELET COUNT 341 10^3/uL (134-434); RBC 5.39 M/mm3 (4.00-5.60); RDW 15.8 % (11.9-15.9); WHITE BLOOD COUNT 9.9 K/mm3 (4.0-10.0)
[2023-03-27 17:50] LABS: INR 1.15 (0.83-1.09); PROTHROMBIN TIME (PATIENT) 13.3 SEC (9.7-13.0)
[2023-03-27 18:07] LABS: CHLORIDE 108 mmol/L (98-107); POTASSIUM 4.3 mmol/L (3.5-5.1); SODIUM 142 mmol/L (136-145)
[2023-03-27 18:09] LABS: CALCIUM 8.4 mg/dL (8.5-10.1)
[2023-03-27 18:10] LABS: ALBUMIN 3.2 g/dl (3.4-5.0); ANION GAP 7 MMOL/L (8-16); BLOOD UREA NITROGEN 15.6 mg/dL (7-18); CO2 27 mmol/L (21-32)
[2023-03-27 18:13] LABS: CREATININE 0.9 mg/dL (0.55-1.3); SGOT/AST 11 U/L (15-37); SGPT/ALT 23 U/L (13-61)
[2023-03-27 18:14] LABS: BILIRUBIN,TOTAL 0.4 mg/dL (0.2-1)
[2023-03-27 18:15] LABS: TOT PROT 6.6 g/dl (6.4-8.2)
[2023-03-27 18:16] LABS: ALK PHOS 69 U/L (45-117)
[2023-03-27 18:17] LABS: GLUCOSE,RANDOM 49 mg/dL (74-106)
[2023-03-27] MEDS ORDERED: DOCUSATE SODIUM 100 MG CAPSULE (FP) PO PRN (21:16)
[2023-03-27] MEDS ORDERED: ACETAMINOPHEN 325 MG TABLET (FP) PO PRN (21:16)
[2023-03-27] MEDS: INSULIN SLIDING SCALE (NOVOLOG) 1 VIAL SQ SCH (23:21)
[2023-03-28] MEDS ORDERED: PIPERACILLIN/TAZOB 3.375 GM 3.375 GM/50 ML BAG IVPB ONE (01:48)
[2023-03-28] MEDS: PIPERACILLIN/TAZOB 3.375 GM 3.375 GM in DEXTROSE 5%-WATER - 50 ML IVPB SCH ×4 (03:44→18:26)
[2023-03-28] MEDS ORDERED: VANCOMYCIN PREMIX 1.75 GM 1,750 MG/350 ML PIGGYBACK IVPB SCH (06:00)
[2023-03-28] MEDS: INSULIN SLIDING SCALE (NOVOLOG) 1 VIAL SQ SCH ×4 (06:38→22:37)
[2023-03-28 10:55] LABS: BASO % 0.7 % (0-2.0); EOS % 1.6 % (0-4.5); HEMATOCRIT 41.3 % (35.4-49); HEMOGLOBIN 13.5 GM/dL (11.7-16.9); LYMPH % 20.5 % (8-40); MCHC 32.7 g/dl (32.0-35.9); MEAN CELL VOLUME 79.4 fl (80-96); MEAN PLT VOLUME 7.7 fl (7.5-11.1); MONO % 8.2 % (3.8-10.2); PLATELET COUNT 325 10^3/uL (134-434); RDW 15.9 % (11.9-15.9); WHITE BLOOD COUNT 8.4 K/mm3 (4.0-10.0)
[2023-03-28 11:31] LABS: POTASSIUM 4.4 mmol/L (3.5-5.1)
[2023-03-28 12:02] LABS: BLOOD UREA NITROGEN 11.4 mg/dL (7-18); CALCIUM 8.3 mg/dL (8.5-10.1); MAGNESIUM 2.1 mg/dL (1.8-2.4)
[2023-03-28 12:05] LABS: PHOSPHOROUS 2.8 mg/dL (2.5-4.9)
[2023-03-28 12:06] LABS: CREATININE 0.9 mg/dL (0.55-1.3)
[2023-03-28] MEDS ORDERED: INSULIN (NOVOLOG) ASPART 100 UNITS/ML 10ML VIAL ONE (21:23)
[2023-03-28] MEDS: HEPARIN NA (PORCINE) 5,000 UNITS/ML 1ML VIAL SQ SCH (22:36)
[2023-03-29] MEDS: PIPERACILLIN/TAZOB 3.375 GM 3.375 GM in DEXTROSE 5%-WATER - 50 ML IVPB SCH ×3 (01:48→17:11)
[2023-03-29] MEDS ORDERED: PIPERACILLIN/TAZOB 3.375 GM 3.375 GM in DEXTROSE 5%-WATER - 50 ML IVPB SCH (03:00)
[2023-03-29] MEDS ORDERED: INSULIN (NOVOLOG) ASPART 100 UNITS/ML 10ML VIAL ONE ×3 (05:27→21:39)
[2023-03-29] MEDS ORDERED: VANCOMYCIN PREMIX 1.75 GM 1,750 MG/350 ML PIGGYBACK IVPB SCH (06:00)
[2023-03-29] MEDS: INSULIN SLIDING SCALE (NOVOLOG) 1 VIAL SQ SCH ×4 (06:24→22:17)
[2023-03-29] MEDS: HEPARIN NA (PORCINE) 5,000 UNITS/ML 1ML VIAL SQ SCH ×2 (11:44→22:06)
[2023-03-29] MEDS: metFORMIN HCL 500 MG TABLET (FP) PO SCH (22:06)
[2023-03-29] MEDS: sitaGLIPtin PHOSPHATE 50 MG TABLET PO SCH (22:06)
[2023-03-30] MEDS: PIPERACILLIN/TAZOB 3.375 GM 3.375 GM in DEXTROSE 5%-WATER - 50 ML IVPB SCH ×3 (01:43→17:47)
[2023-03-30] MEDS: INSULIN SLIDING SCALE (NOVOLOG) 1 VIAL SQ SCH ×4 (06:41→21:18)
[2023-03-30] MEDS: metFORMIN HCL 500 MG TABLET (FP) PO SCH ×2 (09:18→21:07)
[2023-03-30] MEDS: HEPARIN NA (PORCINE) 5,000 UNITS/ML 1ML VIAL SQ SCH ×2 (09:19→21:07)
[2023-03-30] MEDS: sitaGLIPtin PHOSPHATE 50 MG TABLET PO SCH ×2 (09:19→21:07)
[2023-03-30] MEDS: PIOGLITAZONE HCL 15 MG TABLET PO SCH (09:40)
[2023-03-30] MEDS ORDERED: SEMAGLUTIDE 7 MG PO SCH (10:00)
[2023-03-30] MEDS ORDERED: INSULIN (NOVOLOG) ASPART 100 UNITS/ML 10ML VIAL ONE (21:05)
[2023-03-30 23:09] VITALS: RESP 20
[2023-03-31] MEDS: PIPERACILLIN/TAZOB 3.375 GM 3.375 GM in DEXTROSE 5%-WATER - 50 ML IVPB SCH ×2 (01:56→10:36)
[2023-03-31 04:06] VITALS: TEMP 97.5
[2023-03-31] MEDS: INSULIN SLIDING SCALE (NOVOLOG) 1 VIAL SQ SCH ×2 (06:51→11:17)
[2023-03-31] MEDS: metFORMIN HCL 500 MG TABLET (FP) PO SCH (10:37)
[2023-03-31] MEDS: sitaGLIPtin PHOSPHATE 50 MG TABLET PO SCH (10:37)
[2023-03-31] MEDS: HEPARIN NA (PORCINE) 5,000 UNITS/ML 1ML VIAL SQ SCH (10:37)
[2023-03-31 11:58] VITALS: BP 137/89; PULSE 67
[2023-03-31] MEDS: PIOGLITAZONE HCL 15 MG TABLET PO SCH (12:08)
== END 2023-03-31 15:24 | disposition home or self-care (01) | DRG 638 ==
LOC: JER 15:18 → JERBED 19:57 → J8W 03-28 02:03
PROVIDERS: ADMIT Internal Medicine; ATTEND Family Medicine
DX: E11.621 Type 2 diabetes mellitus with foot ulcer (principal); L97.518 Non-pressure chronic ulcer of other part of right foot with other specified severity; E78.00 Pure hypercholesterolemia, unspecified; E11.40 Type 2 diabetes mellitus with diabetic neuropathy, unspecified
CPT/HCPCS: 36415; 73610-TC-RT-FY; 73630-TC-RT-FY; 73718-TC-RT; 80048; 80053; 82962; 83036; 83735; 84100; 85025; 85610; 85651; 85730; 86140; 86850; 86900; 86901; 87040; 87070; 87076; 87077; 87186; 87205; 93005; 93010; 99285-25; G0463-25; J1644; J3370

== ENCOUNTER 2023-04-20 07:53 | Inpatient (IN) | payer OTHER ==
[2023-04-20 10:07] LABS: BASO % 1.3 % (0-2.0); EOS % 1.5 % (0-4.5); HEMATOCRIT 41.1 % (35.4-49); HEMOGLOBIN 13.6 GM/dL (11.7-16.9); LYMPH % 20.2 % (8-40); MCH 27.1 pg (25.7-33.7); MCHC 33.2 g/dl (32.0-35.9); MEAN CELL VOLUME 81.6 fl (80-96); MEAN PLT VOLUME 8.4 fl (7.5-11.1); MONO % 7.9 % (3.8-10.2); NEUT % 69.1 % (42.8-82.8); PLATELET COUNT 191 10^3/uL (134-434); RBC 5.03 M/mm3 (4.00-5.60); RDW 14.7 % (11.9-15.9)
[2023-04-20 10:10] LABS: POTASSIUM 4.1 mmol/L (3.5-5.1)
[2023-04-20 10:12] LABS: ALBUMIN 3.4 g/dl (3.4-5.0); BLOOD UREA NITROGEN 17.2 mg/dL (7-18); CALCIUM 8.7 mg/dL (8.5-10.1)
[2023-04-20 10:16] LABS: CREATININE 0.8 mg/dL (0.55-1.3)
[2023-04-20 10:17] LABS: BILIRUBIN,TOTAL 0.4 mg/dL (0.2-1); TOT PROT 6.8 g/dl (6.4-8.2)
[2023-04-20 10:25] LABS: INR 1.17 (0.83-1.09); PROTHROMBIN TIME (PATIENT) 13.6 SEC (9.7-13.0)
[2023-04-20] MEDS ORDERED: ACETAMINOPHEN 325 MG TABLET (FP) PO PRN (10:31)
[2023-04-20] MEDS: HEPARIN NA (PORCINE) 5,000 UNITS/ML 1ML VIAL SQ SCH ×2 (15:02→22:24)
[2023-04-20 18:10] VITALS: BMI 33.2
[2023-04-21] MEDS: HEPARIN NA (PORCINE) 5,000 UNITS/ML 1ML VIAL SQ SCH ×3 (06:51→21:50)
[2023-04-21 08:45] LABS: BASO % 0.9 % (0-2.0); EOS % 1.8 % (0-4.5); HEMATOCRIT 45.4 % (35.4-49); HEMOGLOBIN 15.5 GM/dL (11.7-16.9); LYMPH % 34.1 % (8-40); MCH 27.4 pg (25.7-33.7); MCHC 34.2 g/dl (32.0-35.9); MEAN CELL VOLUME 80.1 fl (80-96); MEAN PLT VOLUME 8.7 fl (7.5-11.1); MONO % 9.1 % (3.8-10.2); NEUT % 54.1 % (42.8-82.8); PLATELET COUNT 214 10^3/uL (134-434); RBC 5.66 M/mm3 (4.00-5.60); RDW 14.8 % (11.9-15.9); WHITE BLOOD COUNT 6.3 K/mm3 (4.0-10.0)
[2023-04-21] MEDS: PIOGLITAZONE HCL 15 MG TABLET PO SCH ×2 (09:00→13:45)
[2023-04-21 09:22] LABS: POTASSIUM 4.5 mmol/L (3.5-5.1)
[2023-04-21 09:25] LABS: ALBUMIN 3.6 g/dl (3.4-5.0); CALCIUM 8.9 mg/dL (8.5-10.1)
[2023-04-21 09:26] LABS: BLOOD UREA NITROGEN 15.9 mg/dL (7-18)
[2023-04-21 09:28] LABS: CREATININE 0.8 mg/dL (0.55-1.3)
[2023-04-21 09:30] LABS: BILIRUBIN,TOTAL 0.4 mg/dL (0.2-1); TOT PROT 7.3 g/dl (6.4-8.2)
[2023-04-21] MEDS ORDERED: PIOGLITAZONE HCL 15 MG TABLET PO SCH (11:43)
[2023-04-22] MEDS ORDERED: ceFAZolin SODIUM 1 GM VIAL IVPB ONE
[2023-04-22] MEDS: HEPARIN NA (PORCINE) 5,000 UNITS/ML 1ML VIAL SQ SCH ×3 (06:41→21:18)
[2023-04-22] MEDS ORDERED: INSULIN SLIDING SCALE (NOVOLOG) 1 VIAL SQ SCH (07:00)
[2023-04-22] MEDS ORDERED: BUPIVACAINE HCL/PF 0.5% (5MG/ML) 10 ML VIAL ONE (08:40)
[2023-04-22] MEDS ORDERED: LIDOCAINE HCL 2% (20ML MULTI-DOSE VIAL) ONE (08:40)
[2023-04-22] MEDS ORDERED: ACETAMINOPHEN 325 MG TABLET (FP) PO PRN (09:33)
[2023-04-22] MEDS: INSULIN SLIDING SCALE (NOVOLOG) 1 VIAL SQ SCH ×2 (11:40→17:03)
[2023-04-22] MEDS ORDERED: INSULIN (NOVOLOG) ASPART 100 UNITS/ML 10ML VIAL ONE (18:00)
[2023-04-23] MEDS: PIOGLITAZONE HCL 15 MG TABLET PO SCH (05:59)
[2023-04-23] MEDS: HEPARIN NA (PORCINE) 5,000 UNITS/ML 1ML VIAL SQ SCH ×3 (05:59→22:19)
[2023-04-23] MEDS: INSULIN SLIDING SCALE (NOVOLOG) 1 VIAL SQ SCH ×3 (06:21→18:12)
[2023-04-23 09:15] LABS: HEMATOCRIT 44.1 % (35.4-49); HEMOGLOBIN 14.5 GM/dL (11.7-16.9); MCH 26.7 pg (25.7-33.7); MCHC 32.9 g/dl (32.0-35.9); MEAN CELL VOLUME 81.3 fl (80-96); MEAN PLT VOLUME 8.7 fl (7.5-11.1); PLATELET COUNT 207 10^3/uL (134-434); RBC 5.42 M/mm3 (4.00-5.60); RDW 14.6 % (11.9-15.9); WHITE BLOOD COUNT 9.9 K/mm3 (4.0-10.0)
[2023-04-23 09:42] LABS: POTASSIUM 4.3 mmol/L (3.5-5.1)
[2023-04-23 09:51] LABS: CALCIUM 9.1 mg/dL (8.5-10.1)
[2023-04-23 09:52] LABS: BLOOD UREA NITROGEN 17.2 mg/dL (7-18); CREATININE 0.8 mg/dL (0.55-1.3)
[2023-04-23] MEDS: CEFTRIAXONE 2 GM in DEXTROSE 5%-WATER 100 ML IVPB SCH (12:50)
[2023-04-23] MEDS ORDERED: AMMONIUM LACTATE 12% LOTION 225 GM BOTTLE TP PRN (15:21)
[2023-04-24] MEDS: HEPARIN NA (PORCINE) 5,000 UNITS/ML 1ML VIAL SQ SCH ×3 (06:44→21:32)
[2023-04-24] MEDS: INSULIN SLIDING SCALE (NOVOLOG) 1 VIAL SQ SCH ×3 (06:45→16:40)
[2023-04-24] MEDS ORDERED: ACETAMINOPHEN 325 MG TABLET (FP) PO PRN (07:38)
[2023-04-24] MEDS: CEFTRIAXONE 2 GM in DEXTROSE 5%-WATER 100 ML IVPB SCH (09:51)
[2023-04-24] MEDS: PIOGLITAZONE HCL 15 MG TABLET PO SCH (09:52)
[2023-04-25] MEDS: HEPARIN NA (PORCINE) 5,000 UNITS/ML 1ML VIAL SQ SCH ×2 (06:05→13:37)
[2023-04-25] MEDS: INSULIN SLIDING SCALE (NOVOLOG) 1 VIAL SQ SCH ×2 (06:06→11:41)
[2023-04-25] MEDS ORDERED: PIOGLITAZONE HCL 15 MG TABLET PO SCH (07:00)
[2023-04-25 08:45] VITALS: RESP 20
[2023-04-25] MEDS: CEFTRIAXONE 2 GM in DEXTROSE 5%-WATER 100 ML IVPB SCH (10:16)
[2023-04-25 15:33] VITALS: BP 105/59; PULSE 69; TEMP 98.8
== END 2023-04-25 16:50 | disposition home or self-care (01) | DRG 629 ==
LOC: JER 07:53 → JERBED 10:00 → J7W 11:30
PROVIDERS: ADMIT Family Medicine; ATTEND Family Medicine
PROC: 0QBN3ZX Excision of Right Metatarsal, Percutaneous Approach, Diagnostic (ICD-10-PCS; principal; 2023-04-22 08:30)
DX: E11.69 Type 2 diabetes mellitus with other specified complication (principal); I87.311 Chronic venous hypertension (idiopathic) with ulcer of right lower extremity; L97.518 Non-pressure chronic ulcer of other part of right foot with other specified severity; M86.171 Other acute osteomyelitis, right ankle and foot; B95.61 Methicillin susceptible Staphylococcus aureus infection as the cause of diseases classified elsewhere; E11.621 Type 2 diabetes mellitus with foot ulcer; E11.40 Type 2 diabetes mellitus with diabetic neuropathy, unspecified
CPT/HCPCS: 36415; 73630-TC-RT-FY; 80048; 80053; 82962; 83036; 83735; 84443; 85025; 85027; 85610; 85651; 86140; 86850; 86900; 86901; 87040; 87070; 87075; 87186; 87205; 93005; 93010; 99285-25; J1644

== ENCOUNTER 2023-04-26 12:01 | Day surgery (SDC) | payer OTHER ==
[2023-04-26] MEDS ORDERED: DALBAVANCIN HCL 1,500 MG in DEXTROSE 5%-WATER - 500 ML IVPB ONE (12:30)
[2023-04-26 14:03] VITALS: BP 138/59; PULSE 65; RESP 18; TEMP 98.3
== END 2023-04-26 15:01 | disposition home or self-care (01) ==
LOC: FM/S 12:01 → FINFUSION 12:01
PROVIDERS: ATTEND Internal Medicine Infectious Disease
PROC: 3E033GC Introduction of Other Therapeutic Substance into Peripheral Vein, Percutaneous Approach (ICD-10-PCS; principal; 2023-04-26)
DX: M86.9 Osteomyelitis, unspecified (principal)
CPT/HCPCS: 96365; J0875

== ENCOUNTER 2023-05-04 12:02 | Day surgery (SDC) | payer OTHER ==
[2023-05-04] MEDS ORDERED: DALBAVANCIN HCL 1,500 MG in DEXTROSE 5%-WATER - 500 ML IVPB ONE (13:00)
[2023-05-04 13:40] VITALS: BP 108/62; PULSE 72; RESP 18; TEMP 98.3
== END 2023-05-04 13:40 | disposition home or self-care (01) ==
LOC: FINFUSION 12:02 → FM/S 12:03 → FINFUSION 13:40
PROVIDERS: ATTEND Internal Medicine Infectious Disease
DX: M86.9 Osteomyelitis, unspecified (principal)
CPT/HCPCS: 96365; J0875